=== PATIENT | male | born 1965 | race Caucasian/White ===

== ENCOUNTER 2016-10-31 13:21 | Emergency (ER) | payer MEDICAID, OTHER ==
[~2016-10-31] VITALS: Ht 167.6 cm; Wt 76.2 kg
[2016-10-31 14:20] VITALS: BP 140/75
[2016-10-31] MEDS ORDERED: K-VESCENT25 MEQ PO (14:34)
[2016-10-31] MEDS ORDERED: LISINOPRIL5 MG PO (14:34)
[2016-10-31] MEDS ORDERED: METOPROLOL25 MG PO (14:34)
[2016-10-31] MEDS ORDERED: GLUCOTROL XL10 M1 PO (14:34)
[2016-10-31] MEDS ORDERED: PANTOPRAZOLE SO40 M1 PO (14:34)
[2016-10-31] MEDS ORDERED: FENOFIBRATE MI134 MG PO (14:34)
[2016-10-31] MEDS ORDERED: LIPITOR80 MG PO (14:37)
[2016-10-31] MEDS ORDERED: HUMULIN 70 U/ML10 ML SC (14:37)
[2016-10-31] MEDS ORDERED: NORCO 325 MG-51 TAB PO (14:37)
[2016-10-31] MEDS ORDERED: FUROSEMIDE20 M1 PO (14:37)
[2016-10-31] MEDS ORDERED: ACTOPLUS MET 851 TAB PO (14:37)
--- NOTE | 2016-10-31 16:41 | NUR ---
Patient ambulated with assistance to bed 6.
--- NOTE | 2016-10-31 16:42 | NUR ---
50M BIB SELF C/O RT 5TH TOE PAIN X 1 WEEK W/ FOOT SWELLING; NECROSIS NOTED TO RT 5TH FOOT AT THIS TIME; HX: DM, HTN; PT NOTED W/ HEALING SCAR TO MEDIAL CHEST; PT HAD OPEN HEART SURGERY (CABG) AT [facility] ON SEPTEMBER 26, 2016; NO BLEEDING OR DRAINAGE NOTED TO SITE AT THIS TIME. PT NOTED W/ SMALL, DRY, HEALING OPEN WOUND TO POSTERIOR LOWER LEFT FOOT; PT STATED WOUND HAS BEEN PRESENT SINCE JANUARY 2016 FROM " WEARING SHOES THAT WERE TOO TIGHT, WHILE WORKING IN [employer]"; A&OX4, PERRL, BL LUNG SOUNDS CLEAR, RR EVEN/UNLABORED, PT DENIES N/V/D AT THIS TIME; PT RESTING IN BED W/ HOB ELEVATED AND IN LOWEST POSITION; POSITIONED FOR COMFORT; ER MD MADE AWARE OF STATUS. WILL CONTINUE TO MONITOR.
--- NOTE | 2016-10-31 17:09 | NUR ---
ER MD DR. FERNANDEZ EVALUATING PT AT BEDSIDE.
[2016-10-31] MEDS ORDERED: PIPERACILLIN/TAZOBACTAM 3.375 GM in DEXTROSE 5% 50 ML IV ONE (17:15)
[2016-10-31] MEDS ORDERED: VANCOMYCIN 1,000 MG in DEXTROSE 5% 250 ML IV ONE (17:15)
[2016-10-31] MEDS ORDERED: NACL 0.9% 1,000 ML IV ONE (17:15)
--- NOTE | 2016-10-31 17:40 | NUR ---
PATIENT TAKEN TO CT VIA WHEELCHAIR
[2016-10-31] MEDS ORDERED: PIPERACILLIN/TAZOBACTAM 3.375 GM VIAL IV ONE (17:49)
[2016-10-31] MEDS ORDERED: VANCOMYCIN 1,000 MG VIAL ONE (17:49)
--- NOTE | 2016-10-31 18:40 | NUR ---
Patient appears to be resting comfortably in bed. Respirations even and unlabored. FAMILY AT BEDSIDE. WILL CONTINUE TO MONITOR.
--- NOTE | 2016-10-31 19:25 | NUR ---
Pt report given to SHELLY HARRELL. Transfer of care at this time.
--- NOTE | 2016-10-31 19:27 | NUR ---
RECEIVED REPORT FROM SHELLY DE LEON. PT RESTING ON BED, DENIES PAIN AT THIS TIME. VSS. VANCOMYCIN ON GOING, INFUSING WELL. WILL CONTINUE TO MONITOR.
--- NOTE | 2016-10-31 20:15 | NUR ---
Patient discharged with v/s stable. Written and verbal after care instructions given and explained. Patient alert, oriented and verbalized understanding of instructions. Ambulatory with steady gait. All questions addressed prior to discharge. ID band removed. Patient advised to follow up with PMD. Rx of NORCO 5/325MG, LEVOFLOXACIN 750 MG, DOXYCYCLINE 100 MG given. Patient educated on indication of medication including possible reaction and side effects. Opportunity to ask questions provided and answered.
[2016-10-31 20:37] VITALS: BP 151/74
== END 2016-10-31 20:15 | disposition home or self-care (01) ==
LOC: MED 13:21
DX: L03.115 Cellulitis of right lower limb (principal); E11.65 Type 2 diabetes mellitus with hyperglycemia; I10 Essential (primary) hypertension; Z95.1 Presence of aortocoronary bypass graft; Z79.899 Other long term (current) drug therapy
CPT/HCPCS: 36415; 73630; 73700; 80053; 81001; 82948; 83605; 84484; 85025; 85610; 87040; 93005; 96365; 96366; 96368; 99285; J2543; J3370; J7030; J7060

== ENCOUNTER 2016-11-02 12:40 | Inpatient (IN) | payer OTHER ==
[~2016-11-02] VITALS: Ht 165.1 cm; Wt 75.9 kg
[~2016-11-02 12:40] MED LIST: ACTOPLUS MET 851 TAB PO; FENOFIBRATE MI134 MG PO; FUROSEMIDE20 M1 PO; GLUCOTROL XL10 M1 PO; HUMULIN 70 U/ML10 ML SC; K-VESCENT25 MEQ PO; LIPITOR80 MG PO; LISINOPRIL5 MG PO; METOPROLOL25 MG PO; NORCO 325 MG-51 TAB PO; PANTOPRAZOLE SO40 M1 PO
[2016-11-02 12:51] VITALS: BP 145/71
--- NOTE | 2016-11-02 12:59 | NUR ---
Patient going to XRAY via wheelchair per tech.
--- NOTE | 2016-11-02 13:02 | NUR ---
Patient back from XRAY via wheelchair per tech.
--- NOTE | 2016-11-02 13:08 | NUR ---
LAB drawing blood.
--- NOTE | 2016-11-02 13:16 | NUR ---
Pt placed in bed 7.
--- NOTE | 2016-11-02 13:21 | NUR ---
50/M sent from his doctor's office for evaluation of right foot pain and right foot wound. Pt states "I think when I was wearing my sandal it rubbed up on my foot." Pt denies any injury or trauma. Pt c/o mild pain, 5/10. There is a wound to right 5th toe with necrosis, surrounding erythema and swelling to foot and ankle, non pitting. Patient also noted with a wound to left heel that he states has been there since January 2016 but it is not red, not swollen, no drainage noted. Patient is ambulatory with steady gait. Pt is AOX4, sami speaking, VSS. Pt states he was at [facility] 09/26/16 and had stents placed.
--- NOTE | 2016-11-02 13:54 | NUR ---
Patient appears to be resting comfortably in bed. Vital Signs within normal limits. Respirations even and unlabored. Pt found lying in bed reading a book. All needs addressed.
--- NOTE | 2016-11-02 14:26 | NUR ---
Patient being evaluated by physician at bedside.
[2016-11-02] MEDS ORDERED: CLINDAMYCIN 600 MG in DEXTROSE 5% 50 ML IV ONE (14:35)
[2016-11-02] MEDS ORDERED: cefTRIAXone 1,000 MG VIAL ONE (14:39)
[2016-11-02] MEDS ORDERED: CLINDAMYCIN 600 MG/4 ML VIAL ONE ×2 (15:06→21:01)
--- NOTE | 2016-11-02 15:20 | NUR ---
Patient will be admitted to care of Dr. Betts. Admited to Med/Surg. Will go to room 106-A. Belongings list completed. Report to Gold BRAVO.
--- NOTE | 2016-11-02 15:28 | NUR ---
Pt transferred to Med/Surg 106-A via w/c accompanie by EMT Aguila. All belonging sent with patient to M/S.
[2016-11-02 15:40] VITALS: BP 128/66
--- NOTE | 2016-11-02 15:40 | NUR ---
Admitted from ER, with chief complaint of FOOT PAIN, DX CELLULITIS, BILATERAL FOOT WOUND W/ NO DRAINAGE NOTED. 50 y/o , Male, Cooperative, AOX4, ABLE TO VERBALIZE NEEDS, AMBULATORY. PT DENIES PAIN AT REST, C/O FOOT PAIN WITH MOVEMENT, ORDERS PENDING. IV ACCESS ASYMPTOMATIC PATENT AND INTACT. IV SITE SALINE LOCKED. DISCUSSED AND REVIEWED PLAN OF CARE WITH PT, PT VERBALIZES UNDERSTANDING. oriented to call light, bed, phone,television, bathroom, smoking policy, visiting hours, procedures, ID bracelet on. Belongings list checked. SAFETY MEASURES ENSURED. WILL CONTINUE TO MONITOR. Addendum: 11/02/16 at 1930 by Gold Barreto RN ADD TO ENTRY: PER PT, CORONARY BYPASS WAS DONE IN SEPTEMBER 2016, SURGICAL INCISION TO UPPER ABD, MEDIAL CHEST, AND LEFT POPLITEAL AREA. ALL SURGICAL WOUNDS DRY. WOUND EVAL ORDERED.
[2016-11-02] MEDS ORDERED: HYDROcodone/APAP 5/325 MG 1 TAB TAB PO PRN (19:05)
[2016-11-02] MEDS ORDERED: LORazepam 2 MG/ML VIAL IVP PRN (19:05)
[2016-11-02] MEDS ORDERED: LEVOFLOXACIN 500 MG/D5W PREMIX 100 ML IV SCH (19:05)
[2016-11-02] MEDS ORDERED: MORPHINE SULFATE 2 MG/ML SYR IVP PRN (19:05)
[2016-11-02] MEDS ORDERED: ACETAMINOPHEN 325 MG TAB PO PRN (19:05)
[2016-11-02] MEDS ORDERED: ONDANSETRON 4 MG/2 ML VIAL IVP PRN (19:05)
[2016-11-02] MEDS ORDERED: PNEUMOCOCCAL VACCINE 23 MCG/0.5 ML VIAL IMVAC SCH (19:10)
--- NOTE | 2016-11-02 19:30 | NUR ---
CONDITION STABLE, ENDORSED PLAN OF CARE TO SPARK PLUG TESTER RN.
--- NOTE | 2016-11-02 19:35 | NUR ---
RECEIVED REPORT FROM CYRUS BRAVO AND HEDY BRAVO. PATIENT IS ALERT, AWAKE, AND RESTING COMFORTABLY IN BED. PATIENT SPEAKS PRIMARILY COLOMBIAN, BUT IS ABLE TO UNDERSTAND AUSTRIAN. NO SIGNS OF ACUTE DISTRESS OR SHORTNESS OF BREATH NOTED. PATIENT IS DX WITH CELLULITIS ON THE RIGHT FOOT, PARTICULARLY THE PINKY TOE. THERE IS +1 PITTING EDEMA ON THE RIGHT CALF NOTED. THERE IS A #20 IN THE LEFT AC SALINE LOCKED. SITE IS DRY AND INTACT. EXPLAINED PLAN OF CARE TONIGHT TO INCLUDE SCHEDULED MEDICATIONS, VITAL SIGNS, AND MONITORING. PATIENT VERBALIZED UNDERSTANDING. PATIENT'S NEEDS MET AT THIS TIME. CALL LIGHT WITHIN REACH. WILL CONTINUE TO MONITOR PATIENT.
[2016-11-02] MEDS: NACL 0.9% 1,000 ML IV SCH (19:44)
[2016-11-02] MEDS: glipiZIDE ER 5 MG TABER PO SCH (21:00)
[2016-11-02] MEDS ORDERED: ATORVASTATIN 80 MG TAB PO SCH (21:00)
--- NOTE | 2016-11-02 21:40 | NUR ---
SPOKE TO DR. GONZALEZ, WHO IS POWERTRAIN CONTROL SYSTEMS ENGINEER FOR DR. KING, REGARDING PATIENT'S HX OF DM AND NO ORDERS FOR VTE PROPHYLAXIS. DR. GONZALEZ ASK TO ENTER ORDERS FOR SCDS FOR VTE PROPHYLAXIS AND ACHS SCHEDULE FOR HX DM. WILL FOLLOW UP WITH NEW DOCTOR'S ORDERS.
[2016-11-02] MEDS: METOPROLOL 25 MG TAB PO SCH (21:42)
[2016-11-02] MEDS: CLINDAMYCIN 600 MG in DEXTROSE 5% 50 ML IV SCH (21:43)
--- NOTE | 2016-11-02 21:46 | NUR ---
TOLERATED DUE MEDICATIONS. NO SIGNS OF SOB OR DISCOMFORT NOTED. PATIENT'S NEEDS MET AT THIS TIME. CALL LIGHT WITHIN REACH. WILL CONTINUE TO MONITOR PATIENT.
--- NOTE | 2016-11-02 21:50 | NUR ---
UNABLE TO ADMINISTER SCHEDULED 2100 GLUCOTROL XL 10MG PO AND LIPITOR 80MG PO RELATED TO MEDICATION NOT AVAILABLE IN THE FACILITY PER MIRELLA VACA RN. CHARGE NURSE ROME RN IS AWARE.
[2016-11-02] MEDS: INSULIN NPH HUM/REG INSULIN HM 100 UNIT/ML 10 ML VIAL SQ SCH (22:04)
--- NOTE | 2016-11-02 22:40 | NUR ---
PATIENT RESTING COMFORTABLY IN BED. NO SIGNS OF SOB OR DISTRESS NOTED. CALL LIGHT WITHIN REACH. CONTINUE TO MONITOR PATIENT.
--- NOTE | 2016-11-02 23:52 | NUR ---
PATIENT RESTING COMFORTABLY IN BED. VITAL SIGNS ARE WNL. NO REPORTS OF PAIN OR DISCOMFORT AT THIS TIME. PATIENT'S NEEDS MET AT THIS TIME. CALL LIGHT WITHIN REACH. WILL CONTINUE TO MONITOR PATIENT.
[2016-11-03] VITALS: BP 119/60
[2016-11-03] MEDS ORDERED: INSULIN LISPRO SLIDING SCALE 100 UNITS/ML VIAL SUBQ PRN (00:55)
--- NOTE | 2016-11-03 01:50 | NUR ---
PATIENT RESTING COMFORTABLY IN BED. BREATHING IS EVEN AND UNLABORED. CALL LIGHT WITHIN REACH. WILL CONTINUE TO MONITOR.
--- NOTE | 2016-11-03 04:05 | NUR ---
ROUNDED ON PATIENT. PATIENT RESTING QUIETLY IN BED. NO SIGNS OF DISTRESS NOTED. CALL LIGHT WITHIN REACH. WILL CONTINUE TO MONITOR PATIENT.
[2016-11-03] MEDS ORDERED: CLINDAMYCIN 600 MG/4 ML VIAL ONE (04:22)
[2016-11-03] MEDS: CLINDAMYCIN 600 MG in DEXTROSE 5% 50 ML IV SCH (04:29)
--- NOTE | 2016-11-03 05:55 | NUR ---
DR. ALMEIDA AND RESIDENT AT PATIENT'S BEDSIDE TO DISCUSS DEBRIDEMENT PROCEDURE OF RIGHT PINKY TOE. PATIENT VERBALIZED UNDERSTANDING. CONSENT FORM SIGNED.
--- NOTE | 2016-11-03 07:19 | NUR ---
PATIENT RESTING COMFORTABLY IN BED WITH NO SIGNS OF DISTRESS NOTED. ALL PATIENT'S NEEDS ATTENDED TO DURING SHIFT. ENDORSED CONTINUITY OF CARE TO RAMONA BRAVO AND CYRUS BRAVO.
[2016-11-03] MEDS ORDERED: BLOOD GLUCOSE MONITORING 1 DEV DEV FS SCH (07:30)
--- NOTE | 2016-11-03 07:30 | NUR ---
RECEIVED REPORT FROM NIGHT NURSE. PT AOX4, RESTING IN BED, ABLE TO VERBALIZE NEEDS. PT DENIES PAIN, CP OR SOB. NO S/S OF ACUTE DISTRESS. EDEMA TO RIGHT FOOT NOTED. DRESSING TO RIGHT FOOT. LEFT HEEL WOUND, LEFT POPLITEAL WOUND, CHEST AND ABD SCARS NOTED. IV SITE ASYMPTOMATIC, PATENT AND INTACT. IVF INFUSING WELL DISCUSSED AND REVIEWED PLAN OF CARE WITH PT. PT VERBALIZES UNDERSTANDING. ASSISTED PT TO EAT. PT EATING INDEPENDENTLY. SAFETY MEASURES ENSURED. CALL LIGHT WITHIN REACH. WILL CONTINUE TO MONITOR.
[2016-11-03 08:00] VITALS: BP 136/76
--- NOTE | 2016-11-03 08:12 | NUR ---
PATIENT HAS BEEN SCREENED AND CATEGORIZED HIGH NUTRITION RISK. PATIENT WILL BE SEEN WITHIN 1-2 DAYS OF ADMISSION. 11/03/16-11/04/[address]
[2016-11-03] MEDS: NACL 0.9% 1,000 ML IV SCH (08:21)
[2016-11-03] MEDS ORDERED: FUROSEMIDE 20 MG TAB PO SCH (09:00)
[2016-11-03] MEDS ORDERED: LISINOPRIL 5 MG TAB PO SCH (09:00)
[2016-11-03] MEDS ORDERED: LEVAQUIN500 M1 PO (09:06)
[2016-11-03] MEDS ORDERED: CLEOCIN HCL300 MG PO (09:06)
[2016-11-03] MEDS: METOPROLOL 25 MG TAB PO SCH (09:11)
[2016-11-03] MEDS: glipiZIDE ER 5 MG TABER PO SCH (09:12)
[2016-11-03] MEDS: INSULIN NPH HUM/REG INSULIN HM 100 UNIT/ML 10 ML VIAL SQ SCH (09:28)
--- NOTE | 2016-11-03 09:33 | NUR ---
MEDICATIONS ADMINISTERED WITH EDUCATION. PT VERBALIZES UNDERSTANDING. PT TOLERATED MEDS WELL. CONDITION STABLE. SAFETY MEASURES ENSURED. WILL CONTINUE TO MONITOR.
--- NOTE | 2016-11-03 09:50 | NUR ---
DR. HURST'S RESIDENT CALLED. NO PLANS OF TX FOR THIS PT. PT WILL NEED TO F/U WITH PCP AND GET A REFERRAL TO A VASCULAR SURGEON PER DR KING. WILL START THE DC PROCESS.
--- NOTE | 2016-11-03 11:12 | NUR ---
CM NOTE [facility] ([phone]), WILL SET UP OUTPATIENT VASCULAR APPOINTMENT ONCE ORDER HAS BEEN RECEIVED.
--- NOTE | 2016-11-03 11:45 | NUR ---
PT GIVEN DISCHARGE INFORMATION. ANSWERED ALL QUESTIONS. PT VERBALIZED UNDERSTANDING. PT SIGNED ALL NECESSARY PAPERWORK. REMOVED PT'S IV, CANNULA INTACT. NO BLEEDING NOTED. REMOVED ID BAND. TOOK PICTURES OF WOUND X 3. PT WILL GET DRESSED AND GATHER HIS STUFF. ADMINISTERED HIS PNEUMONIA VACCINE. PT TOLERATED WELL. WILL LET ME KNOW WHEN HE IS READY SO THAT WE CAN BRING A WHEELCHAIR TO PUSH HIM OUT.
--- NOTE | 2016-11-03 11:55 | NUR ---
PT WHEELED OUT ACCOMPANIED BY POT RELINER AND FRIEND. PT HAS ALL HIS PERSONAL BELONGINGS. PT IS IN STABLE CONDITION.
--- NOTE | 2016-11-03 14:01 | NUR ---
CM NOTE INITIAL REVIEW FAXED TO [facility] (FAX# [phone]) AND [facility] (FAX# [phone], ATTN: JEAN CARLOS #[phone])
--- NOTE | 2016-11-04 09:00 | NUR ---
WOUND CARE NOTES: UNABLE TO SEE PATIENT, PATIENT GOT D/C 11/03/16
== END 2016-11-03 11:55 | disposition home or self-care (01) | DRG 380 ==
LOC: MED 12:40 → MTU 15:20
PROVIDERS: ADMIT Hospitalist; ATTEND Hospitalist
DX: E11.621 Type 2 diabetes mellitus with foot ulcer (principal); L97.519 Non-pressure chronic ulcer of other part of right foot with unspecified severity; E11.52 Type 2 diabetes mellitus with diabetic peripheral angiopathy with gangrene; E11.40 Type 2 diabetes mellitus with diabetic neuropathy, unspecified; L03.116 Cellulitis of left lower limb; I25.10 Atherosclerotic heart disease of native coronary artery without angina pectoris; I10 Essential (primary) hypertension; I15.2 Hypertension secondary to endocrine disorders; E78.5 Hyperlipidemia, unspecified; K21.9 Gastro-esophageal reflux disease without esophagitis; Z95.1 Presence of aortocoronary bypass graft

== ENCOUNTER 2016-11-29 14:54 | Inpatient (IN) | payer OTHER ==
[~2016-11-29] VITALS: Ht 165.1 cm; Wt 73.9 kg
[~2016-11-29 14:54] MED LIST changes: +ACET-2869 PO; -ACTOPLUS MET 851 TAB PO; +CLIN300C2 PO; +FENO134C2 PO; -FENOFIBRATE MI134 MG PO; +FURO20TA8 PO; -FUROSEMIDE20 M1 PO; +GLIP10TE PO; -GLUCOTROL XL10 M1 PO; -HUMULIN 70 U/ML10 ML SC; +INSU10SU2 SC; -K-VESCENT25 MEQ PO; +LEVO500T22 PO; +LIP80 PO; -LIPITOR80 MG PO; +LISI-424 PO; -LISINOPRIL5 MG PO; +METF1TAB PO; +METO25TA3 PO; -METOPROLOL25 MG PO; -NORCO 325 MG-51 TAB PO; +PANT40VI PO; -PANTOPRAZOLE SO40 M1 PO; +POTA25TE38 PO
[2016-11-29 15:22] VITALS: BP 151/77
--- NOTE | 2016-11-29 17:37 | NUR ---
PATIENT AMBULATED TO BED 6 AT THIS TIME.
--- NOTE | 2016-11-29 17:40 | NUR ---
PT REFERRED TO ER FROM MACHINE SHOP INSPECTOR FOR ADMISSION TO HOSPITAL FOR GANGRENOUS RIGHT 5TH TOE NOT RESPONDING TO WOUND CARE, PICC LINE INSERTION AND IV ABX. HX DM, TRIPLE BYPASS 09/30 AT [facility].DENIES N/V/D; SKIN IS PINK/WARM/DRY; AAOX4 WITH EVEN AND STEADY GAIT; LUNGS CLEAR BL; HR EVEN AND REGULAR; PT DENIES ANY FEVER, CP, SOB, OR COUGH AT THIS TIME; PATIENT STATES PAIN OF 9/10 AT THIS TIME;PATIENT POSITIONED FOR COMFORT; HOB ELEVATED; BEDRAILS UP X2; BED DOWN. ER MD MADE AWARE OF PT STATUS.
[2016-11-29] MEDS ORDERED: NACL 0.9% 500 ML IV SCH (17:44)
[2016-11-29] MEDS ORDERED: VANCOMYCIN 1,000 MG in DEXTROSE 5% 250 ML IV ONE (17:45)
[2016-11-29] MEDS ORDERED: cefTRIAXone 1,000 MG in DEXT 5% MINI-BAG PLUS 50 ML IV ONE (17:45)
[2016-11-29] MEDS ORDERED: cefTRIAXone 1,000 MG VIAL ONE (18:45)
[2016-11-29 18:50] LABS: BASOPHILS % (AUTO) 0.2 % (0.0-2.0); EOSINOPHILS # (AUTO) 0.3 K/uL (0-0.4); EOSINOPHILS % (AUTO) 2.5 % (0.0-4.0); HEMATOCRIT 32.7 % (36-52); LYMPHOCYTES # (AUTO) 1.4 K/uL (2.0-11.5); LYMPHOCYTES % (AUTO) 13.6 % (20.5-51.1); MEAN CORPUSCULAR HEMOGLOBIN 29 pg (27-31); MEAN CORPUSCULAR HGB CONC 34 g/dL (33-37); MEAN CORPUSCULAR VOLUME 85 fL (80-94); MONOCYTES # (AUTO) 0.7 K/uL (0.8-1.0); MONOCYTES % (AUTO) 6.9 % (1.7-9.3); NEUTROPHILS % (AUTO) 76.8 % (42.2-75.2); PLATELET COUNT (AUTO) 254 K/uL (140-450); RED BLOOD CELL COUNT(AUTO) 3.87 MIL/uL (4.20-6.10); RED CELL DISTRIBUTION WIDTH 13.9 % (11.6-13.7); WHITE BLOOD COUNT (AUTO) 10.4 K/uL (4.8-10.8)
[2016-11-29 19:14] LABS: LACTIC ACID 0.7 mmol/L (0.4-2.0)
[2016-11-29 19:19] LABS: ANION GAP 12.6 (8-16); CALCIUM 8.4 mg/dL (8.5-10.1); CARBON DIOXIDE 25.8 mmol/L (21-32); CREATININE 1.1 mg/dL (0.6-1.3); POTASSIUM 4.4 mmol/L (3.5-5.1)
[2016-11-29 19:21] LABS: PARTIAL THROMBOPLASTIN TIME 25.3 secs (22-35.6); PROTHROMBIN TIME 9.6 secs (10.8-13.4)
[2016-11-29 19:23] LABS: ALBUMIN 2.8 g/dL (3.4-5.0); TOTAL BILIRUBIN 0.2 mg/dL (0.0-1.0); TOTAL PROTEIN, SERUM 7.1 g/dL (6.4-8.2)
--- NOTE | 2016-11-29 19:39 | NUR ---
Pt report given to SHELLY QUIROGA. Transfer of care at this time.
[2016-11-29] MEDS ORDERED: HYDROcodone/APAP 5/325 MG 1 TAB TAB PO PRN (20:05)
[2016-11-29] MEDS ORDERED: MORPHINE SULFATE 2 MG/ML SYR IVP PRN (20:05)
[2016-11-29] MEDS ORDERED: ACETAMINOPHEN 325 MG TAB PO PRN (20:05)
[2016-11-29] MEDS ORDERED: ONDANSETRON 4 MG/2 ML VIAL IVP PRN (20:05)
[2016-11-29] MEDS ORDERED: DEXTROSE 50% 50 ML SYR IVP PRN (20:05)
[2016-11-29] MEDS ORDERED: LORazepam 2 MG/ML VIAL IVP PRN (20:05)
[2016-11-29 20:16] LABS: APPEARANCE,URINE CLEAR (CLEAR); BILIRUBIN,URINE NEGATIVE (NEGATIVE); BLOOD, URINE 1+ (NEGATIVE); COLOR,URINE YELLOW (YELLOW); LEUKOCYTE ESTERASE ,URINE NEGATIVE (NEGATIVE); NITRITE, URINE NEGATIVE (NEGATIVE); PH,URINE 5.5 (5.0-9.0); PROTEIN,URINE 3+ (NEGATIVE); UGLUCOSE 3+ (NEGATIVE); UROBILINOGEN,URINE 0.2 EU/dL (0.2 - 1)
--- NOTE | 2016-11-29 20:35 | NUR ---
Patient will be admitted to care of DR GONZALEZ. Admited to MS 105B. Will go to room 105B. Belongings list completed. Report to DAYNA BRAVO .
[2016-11-29 20:37] LABS: BACTERIA,URINE FEW /HPF (None Seen); SQUAMOUS EPITHELIAL CELL,UR 0-3 /LPF (0-3 (FEW)); WBC,URINE 0-3 /HPF (0-5)
--- NOTE | 2016-11-29 21:00 | NUR ---
PATIENT ADMITTED TO THE UNIT FROM ED VIA WHEELCHAIR, PATIENT IS ABLE TO AMBULATE TO BED WITH MINIMAL ASSISTANCE. PT IS AAOX4, ON ROOM AIR, NO SOB OR SIGN OF DISTRESS. IV TO RIGHT AC PATENT AND INTACT. NOTED TO RIGHT 5TH TOE, WOULD WITH BLACK WOUND BED, PATIENT STATES MINIMAL PAIN. NOTED MIDLINE CHEST SCAR S/P CABG SURGERY 09/2016. VITAL SIGNS STABLE, ORIENTED PATIENT TO ROOM AND CALL LIGHT, SAFETY MEASURES CHECKED, DISCUSSED PLAN OF CARE WITH PATIENT, PT VERBALIZED UNDERSTANDING, CALL LIGHT WITHIN REACH. WILL CONTINUE TO MONITOR.
[2016-11-29] MEDS ORDERED: VANCOMYCIN 1,000 MG VIAL ONE (21:02)
[2016-11-29] MEDS: NACL 0.9% 1,000 ML IV SCH (21:17)
[2016-11-29] MEDS: BLOOD GLUCOSE MONITORING 1 DEV DEV FS SCH (21:19)
[2016-11-29] MEDS: INSULIN LISPRO SLIDING SCALE 100 UNITS/ML VIAL SUBQ PRN (21:26)
[2016-11-29] MEDS ORDERED: PIPERACILLIN/TAZOBACTAM 3.375 GM VIAL IV ONE (21:32)
[2016-11-29] MEDS: PIPERACILLIN/TAZOBACTAM 3.375 GM in DEXTROSE 5% 50 ML IV SCH (22:52)
--- NOTE | 2016-11-29 23:00 | NUR ---
PATIENT RESTING IN BED, NO SOB OR SIGN OF DISTRESS, CALL LIGHT WITHIN REACH. WILL CONTINUE TO MONITOR.
[2016-11-30] VITALS: BP 134/57
--- NOTE | 2016-11-30 00:30 | NUR ---
VITAL SIGNS STABLE, NO SOB OR SIGN OF DISTRESS, CALL LIGHT WITHIN REACH WILL CONTINUE TO MONITOR.
--- NOTE | 2016-11-30 02:30 | NUR ---
PATIENT SLEEPING, NO SOB OR SIGN OF DISTRESS AT THIS TIME, CALL LIGHT WITHIN REACH, WILL CONTINUE TO MONITOR.
[2016-11-30 02:46] LABS: CREATINE KINASE MB 0.9 ng/mL (0-3.6)
--- NOTE | 2016-11-30 04:30 | NUR ---
PATIENT RESTING IN BED, NO SOB OR SIGN OF DISTRESS AT THIS TIME, CALL LIGHT WITHIN REACH. WILL CONTINUE TO MONITOR.
[2016-11-30] MEDS ORDERED: PIPERACILLIN/TAZOBACTAM 3.375 GM VIAL IV ONE (04:37)
[2016-11-30] MEDS: PIPERACILLIN/TAZOBACTAM 3.375 GM in DEXTROSE 5% 50 ML IV SCH (04:40)
[2016-11-30] MEDS: NACL 0.9% 1,000 ML IV SCH ×2 (06:05→16:01)
[2016-11-30 06:24] LABS: BASOPHILS # (AUTO) 0.1 K/uL (0.00-0.22); BASOPHILS % (AUTO) 1.2 % (0.0-2.0); EOSINOPHILS # (AUTO) 0.2 K/uL (0-0.4); EOSINOPHILS % (AUTO) 2.3 % (0.0-4.0); HEMATOCRIT 29.9 % (36-52); LYMPHOCYTES # (AUTO) 1.6 K/uL (2.0-11.5); LYMPHOCYTES % (AUTO) 18.2 % (20.5-51.1); MEAN CORPUSCULAR HEMOGLOBIN 28 pg (27-31); MEAN CORPUSCULAR HGB CONC 34 g/dL (33-37); MEAN CORPUSCULAR VOLUME 84 fL (80-94); MONOCYTES # (AUTO) 0.7 K/uL (0.8-1.0); MONOCYTES % (AUTO) 8.3 % (1.7-9.3); NEUTROPHILS # (AUTO) 6.2 K/uL (1.8-7.7); PLATELET COUNT (AUTO) 233 K/uL (140-450); RED BLOOD CELL COUNT(AUTO) 3.55 MIL/uL (4.20-6.10); RED CELL DISTRIBUTION WIDTH 14.1 % (11.6-13.7); WHITE BLOOD COUNT (AUTO) 8.8 K/uL (4.8-10.8)
[2016-11-30] MEDS: BLOOD GLUCOSE MONITORING 1 DEV DEV FS SCH ×4 (06:38→20:47)
[2016-11-30 06:43] LABS: ALBUMIN 2.3 g/dL (3.4-5.0); ANION GAP 11.4 (8-16); CARBON DIOXIDE 25.7 mmol/L (21-32); MAGNESIUM 1.9 mg/dL (1.8-2.4); POTASSIUM 4.1 mmol/L (3.5-5.1); TOTAL BILIRUBIN 0.2 mg/dL (0.0-1.0); TOTAL PROTEIN, SERUM 6.2 g/dL (6.4-8.2)
[2016-11-30] MEDS: INSULIN LISPRO SLIDING SCALE 100 UNITS/ML VIAL SUBQ PRN ×3 (06:44→20:46)
--- NOTE | 2016-11-30 07:34 | NUR ---
RECEIVED REPORT FROM NIGHT RN. PT RESTING IN BED. AAOX4. NO S/S OF ACUTE DISTRESS. WOUND TO RIGHT 5TH TOE AND LEFT HEEL NOTED. PT DENIES PAIN. IV SITE PATENT AND INTACT. CALL LIGHT WITHIN REACH. SAFETY MEASURES ENSURED. WILL CONTINUE TO MONITOR.
--- NOTE | 2016-11-30 07:34 | NUR ---
ENDORSED PATIENT TO DAY RN AT BEDSIDE, PATIENT IN STABLE CONDITION
--- NOTE | 2016-11-30 08:30 | NUR ---
PATIENT HAS BEEN SCREENED AND CATEGORIZED HIGH NUTRITION RISK. PATIENT WILL BE SEEN WITHIN 1-2 DAYS OF ADMISSION. 11/30/16-12/01/[address]
--- NOTE | 2016-11-30 08:35 | NUR ---
WOUND CARE EVALUATION NOTES: REASON FOR EVALUATION: RIGHT 5TH TOE GANGRENE COMPLETE SKIN ASSESSMENT DONE ON THIS 50 Y/O MALE PATIENT FROM HOME TO [facility], WITH INITIAL DIAGNOSIS OF RIGHT 5TH TOE GANGRENE. PAST MEDICAL HISTORY INCLUDE DIABETES, CABG 09/30 AND HYPERTENSION. ALL ABOVE INFORMATION WAS OBTAINED FROM THE ADMISSION H&P. LABS ARE WBC 8.8, H/H 10.0/29.9, GLUCOSE 200, ALBUMIN 2.3, PT/INR 9.6/1.0 AND PTT 25.3. CURRENT MEDS INCLUDE ENOXAPARIN, ZOSYN, INSULIN, MORPHINE, ATIVAN AND NORCO. PATIENT IS AWAKE, ALERT AND ORIENTED TO PERSON, PLACE, DATE AND TIME. SKIN WARM TO TOUCH WNL, TOENAILS ARE SLIGHTLY THICKENED, NO EDEMA, WITH HAIR GROWTH AND +2 BILATERAL PEDAL PULSES. SURGICAL SCARRING NOTED ON THE THE STERNUM, PER PATIENT HE HAD CABG DONE ON 09/26/16 AT [facility]. URINE AND BOWEL CONTINENT, ABLE TO AMBULATE TO THE RESTROOM CLAIMED. ABLE TO TURN SELF WITHOUT ASSISTANCE. INITIAL PLAN OF CARE AND PRESSURE PREVENTIVE MEASURES DISCUSSED, ABLE TO VERBALIZE UNDERSTANDING. INTEGUMENTARY: RIGHT 5TH TOE - GANGRENE LEFT PLANTAR HEEL - DFU RECOMMENDATIONS: -PAINT RIGHT 5TH TOE AND LEFT PLANTAR HEEL WITH BETADINE BIDWC AND LEAVE OPEN TO AIR -TURN AND REPOSITION PATIENT Q2H -ASSESS AND MONITOR SKIN CONDITION DURING POSITION CHANGE, PLEASE PAY PARTICULAR ATTENTION TO SACRALCOCCYX, ELBOWS AND HEELS -OFFLOAD BILATERAL HEELS BY PLACING PILLOWS UNDER CALVES AT ALL TIMES, UNLESS OTHERWISE CONTRAINDICATED -PODIATRY CONSULT IF OK WITH PMD -KEEP SKIN CLEAN AND DRY AT ALL TIMES. RECOMMENDATIONS DISCUSSED WITH PRIMARY RN. WILL FOLLOW UP PATIENT Q7 DAYS AND PRN. PLEASE CONTACT [facility] FOR ANY CONCERNS, QUESTIONS AND CHANGES IN SKIN CONDITION.
[2016-11-30] MEDS: ENOXAPARIN 40 MG/0.4 ML SYR SUBQ SCH (08:53)
[2016-11-30 09:29] VITALS: BP 122/74
--- NOTE | 2016-11-30 10:34 | NUR ---
FAXED INITIAL REVIEW TO [facility] [phone] PHONE SAUNDRA [phone]
--- NOTE | 2016-11-30 10:49 | NUR ---
PICTURE TAKEN OF LEFT FOOT WOUND.
--- NOTE | 2016-11-30 10:57 | NUR ---
11/30/16 RD INITIAL ASSESSMENT COMPLETED PLEASE REFER TO NUTRITION ASSESSMENT UNDER CARE ACTIVITY FOR ESTIMATED NUTRITIONAL NEEDS. 1. CHANGE DIET TO 75 GM CONSISTENT CARBOHYDRATE DIET 2. RECOMMEND VITAMIN C SUPPLEMENT [id number] MG/DAILY 3. RD TO FOLLOW-UP 2-3 DAYS; HIGH RISK MITZY LIM, FLEX
--- NOTE | 2016-11-30 11:00 | NUR ---
DR. GONZALEZ MADE AWARE OF RECOMMENDATION FOR PEDIATRY CONSULT AND ARTERIA AND VENOUS ULTRASOUND OF BLE.
[2016-11-30 11:04] LABS: CREATINE KINASE MB 1.2 ng/mL (0-3.6)
[2016-11-30] MEDS: PIPER/TAZO 3.375GM/D5W PREMIX 50 ML IV SCH ×2 (12:24→20:56)
[2016-11-30] MEDS: GAUZE TP SCH (12:24)
--- NOTE | 2016-11-30 12:49 | NUR ---
PT RESTING IN BED. NO S/S OF ACUTE DISTRESS. PT DENIES PAIN. CALL LIGHT WITHIN REACH. SAFETY MEASURES ENSURED. WILL CONTINUE TO MONITOR.
[2016-11-30 16:00] VITALS: BP 138/68
--- NOTE | 2016-11-30 16:11 | NUR ---
PT RESTING IN BED. NO S/S OF ACUTE DISTRESS. PT DENIES PAIN. FAMILY AT BEDSIDE. WILL CONTINUE TO MONITOR.
--- NOTE | 2016-11-30 19:33 | NUR ---
ENDORSED PLAN OF CARE TO NIGHT RN. PT REMAINS IN STABLE CONDITION.
--- NOTE | 2016-11-30 19:34 | NUR ---
RECEIVED PT FROM YENNY BRAVO PT IS AAOX4 ALBANIAN SPEAKER AMBULATORY ILV ON RT AC INFUSING WELL NOT DISTRESS NOTED AT THIS TIME INITIAL ASSESSMENT DONE
[2016-11-30 20:00] VITALS: BP 142/74
[2016-11-30] MEDS: INSULIN NPH HUM/REG INSULIN HM 100 UNIT/ML 10 ML VIAL SQ SCH (20:48)
[2016-11-30] MEDS ORDERED: METOPROLOL 25 MG TAB PO SCH (21:00)
[2016-11-30] MEDS ORDERED: INSULIN NPH HUM/REG INSULIN HM 100 UNIT/ML 10 ML VIAL SQ SCH (21:00)
[2016-11-30] MEDS ORDERED: ATORVASTATIN 80 MG TAB PO SCH (21:00)
--- NOTE | 2016-11-30 21:30 | NUR ---
BLOOD SUGAR TEST 241 COVERAGE WITH4 UNITS SUBQ HUMALOG RT ARM
[2016-12-01] VITALS: BP 152/77
--- NOTE | 2016-12-01 | NUR ---
IV ON RT AC IS OUT AND A NEW IV IS INSERTED ON LEFT HAND GAUGE # 22, REMAIN STABLE DENIES ANY PAIN OR DISCOMFORT
[2016-12-01] MEDS: GAUZE TP SCH ×2 (01:00→12:49)
--- NOTE | 2016-12-01 04:00 | NUR ---
SPONGE BATH GIVEN , LINEN CHANGED IV ON LEFT HAND INFUSING WELL DENIES ANY PAIN
[2016-12-01] MEDS: NACL 0.9% 1,000 ML IV SCH ×2 (04:37→12:01)
[2016-12-01] MEDS: PIPER/TAZO 3.375GM/D5W PREMIX 50 ML IV SCH ×2 (04:38→12:26)
[2016-12-01] MEDS: BLOOD GLUCOSE MONITORING 1 DEV DEV FS SCH ×2 (07:03→11:52)
--- NOTE | 2016-12-01 07:03 | NUR ---
BLOOD SUGAR TEST 89 PT RESTING NOT DISTRESS NOTED IV ON LEFT HAND INFUSING WELL
--- NOTE | 2016-12-01 07:05 | NUR ---
RECEIVED REPORT FROM NIGHT RN. PT RESTING IN BED, AAOX4, IV INTACT AND PATENT, PATIENT DENIES PAIN, NO S/S OF DISTRESS NOTE, WOUND NOTED TO RT 5TH TOE, AND LT HEEL. CALL LIGHT WITHIN REACH, SAFETY MEASURE ENSURED, WILL CONTINUE TO MONITOR.
[2016-12-01 07:10] LABS: BASOPHILS # (AUTO) 0.1 K/uL (0.00-0.22); BASOPHILS % (AUTO) 1.4 % (0.0-2.0); EOSINOPHILS # (AUTO) 0.2 K/uL (0-0.4); EOSINOPHILS % (AUTO) 2.4 % (0.0-4.0); HEMOGLOBIN 10.1 g/dL (12.0-18.0); LYMPHOCYTES # (AUTO) 1.7 K/uL (2.0-11.5); LYMPHOCYTES % (AUTO) 18.2 % (20.5-51.1); MEAN CORPUSCULAR HEMOGLOBIN 28 pg (27-31); MEAN CORPUSCULAR HGB CONC 33 g/dL (33-37); MEAN CORPUSCULAR VOLUME 85 fL (80-94); MONOCYTES # (AUTO) 0.7 K/uL (0.8-1.0); MONOCYTES % (AUTO) 7.6 % (1.7-9.3); NEUTROPHILS # (AUTO) 6.7 K/uL (1.8-7.7); NEUTROPHILS % (AUTO) 70.4 % (42.2-75.2); PLATELET COUNT (AUTO) 241 K/uL (140-450); RED BLOOD CELL COUNT(AUTO) 3.67 MIL/uL (4.20-6.10); RED CELL DISTRIBUTION WIDTH 14.1 % (11.6-13.7); WHITE BLOOD COUNT (AUTO) 9.4 K/uL (4.8-10.8)
[2016-12-01 08:00] VITALS: BP 137/75
[2016-12-01 08:54] LABS: ALBUMIN 2.2 g/dL (3.4-5.0); ANION GAP 12.6 (8-16); CALCIUM 8.4 mg/dL (8.5-10.1); CARBON DIOXIDE 25.9 mmol/L (21-32); CREATININE 1.1 mg/dL (0.6-1.3); POTASSIUM 3.5 mmol/L (3.5-5.1); TOTAL BILIRUBIN 0.2 mg/dL (0.0-1.0); TOTAL PROTEIN, SERUM 6.3 g/dL (6.4-8.2)
[2016-12-01] MEDS ORDERED: CIT AC PO SCH (09:00)
[2016-12-01] MEDS ORDERED: FUROSEMIDE 20 MG TAB PO SCH (09:00)
[2016-12-01] MEDS ORDERED: POTASSIUM BICARBONATE PO SCH (09:00)
[2016-12-01] MEDS ORDERED: LISINOPRIL 5 MG TAB PO SCH (09:00)
--- NOTE | 2016-12-01 09:50 | NUR ---
PATIENT RESTING AND WATCHING TV IN BED, NO S/S OF ACUTE DISTRESS NOTED, DENIES PAIN AT THIS TIME, IV INTACT AND PATENT, CALL LIGHT WITHIN REACH, SAFETY MEASURE ENSURED, WILL CONTINUE TO MONITOR.
[2016-12-01] MEDS: ENOXAPARIN 40 MG/0.4 ML SYR SUBQ SCH (09:56)
[2016-12-01] MEDS: INSULIN NPH HUM/REG INSULIN HM 100 UNIT/ML 10 ML VIAL SQ SCH (10:00)
--- NOTE | 2016-12-01 11:58 | NUR ---
PATIENT RESTING IN BED, BLOOD SUGAR 87, GIVEN APPLE JUICE. NO S/S OF ACUTE DISTRESS NOTED, PT DENIES PAIN. PT IS AWAITING LUNCH, CALL LIGHT WITHIN REACH, SAFETY MEASURE ENSURED, AND WILL CONTINUE TO MONITOR.
--- NOTE | 2016-12-01 13:16 | NUR ---
P.T. NOTES P.T. EVAL DONE; NURSING TO AMBULATE PATIENT W/ CRUTCHES, (L)LE TTWB AD ROSALBA.
--- NOTE | 2016-12-01 14:37 | NUR ---
SS NOTE: SENT PT INFORMATION AND MD ORDER TO [facility] (F: [phone]), RECEIVED FAX CONFIRMATION PER RAJESH FROM [address] ([phone]), THEY ARE ABLE TO ACCEPT PT AND WILL SCHEDULE AN APPT WITH PT ONCE THEY RECEIVE AUTH FROM [facility]. I SPOKE WITH NARCISA FROM [facility] ([phone]) AND SHE CONFIRMED THAT THEY RECEIVED PT'S INFORMATION. SHE STATED THAT THE ORDER HAS NOT BEEN PROCESSED YET AND A CM WILL CALL ME BACK ONCE [facility] BEEN APPROVED. SHE WAS MADE AWARE THAT THERE IS A DISCHARGE ORDER.
--- NOTE | 2016-12-01 16:10 | NUR ---
SS NOTE: CHI MENA FROM [facility] ([phone]), THEY RECEIVED AUTH FROM PT'S INSURANCE AND HAVE ALREADY CONTACTED PT TO MAKE AN APPT TO VISIT PT AT HOME.
--- NOTE | 2016-12-01 17:17 | NUR ---
PATIENT CLEAR FOR DISCHARGE, DISCHARGE INSTRUCTION PROVIDED, PATIENT VERBALIZED UNDERSTANDING, IV TAKEN OUT, TIP INTACT, PATIENT TAKEN OUT
== END 2016-12-01 17:17 | disposition home health service (06) | DRG 197 ==
LOC: MED 14:54 → MTU 20:05
PROVIDERS: ADMIT Hospitalist; ATTEND Hospitalist
DX: E11.52 Type 2 diabetes mellitus with diabetic peripheral angiopathy with gangrene (principal); E11.40 Type 2 diabetes mellitus with diabetic neuropathy, unspecified; E11.621 Type 2 diabetes mellitus with foot ulcer; L97.519 Non-pressure chronic ulcer of other part of right foot with unspecified severity; I10 Essential (primary) hypertension; I25.10 Atherosclerotic heart disease of native coronary artery without angina pectoris; L03.031 Cellulitis of right toe; Z95.1 Presence of aortocoronary bypass graft
CPT/HCPCS: 36415; 71010; 73630; 80053; 81001; 82550; 82553; 82948; 83605; 83735; 83874; 83880; 84484; 85025; 85610; 85651; 85730; 86140; 87040; 87081; 87086; 93005; 93971; 96365; 97116; 99285; J0696; J1650; J1815; J2543; J3370; J7030; J7060; Q0092

== ENCOUNTER 2017-04-07 11:54 | Inpatient (IN) | payer OTHER ==
[~2017-04-07] VITALS: Ht 167.6 cm; Wt 70.8 kg
[~2017-04-07 11:54] MED LIST changes: -ACET-2869 PO; +ACTOPLUS MET 851 TAB PO; +CLEOCIN HCL300 MG PO; -CLIN300C2 PO; -FENO134C2 PO; +FENOFIBRATE MI134 MG PO; -FURO20TA8 PO; +FUROSEMIDE20 M1 PO; -GLIP10TE PO; +GLUCOTROL XL10 M1 PO; +HUMULIN 70 U/ML10 ML SC; -INSU10SU2 SC; +K-VESCENT25 MEQ PO; +LEVAQUIN500 M1 PO; -LEVO500T22 PO; -LIP80 PO; +LIPITOR80 MG PO; -LISI-424 PO; +LISINOPRIL5 MG PO; -METF1TAB PO; -METO25TA3 PO; +METOPROLOL25 MG PO; +NORCO 325 MG-51 TAB PO; -PANT40VI PO; +PANTOPRAZOLE SO40 M1 PO; -POTA25TE38 PO
[2017-04-07 12:02] VITALS: BP 156/80
--- NOTE | 2017-04-07 14:27 | NUR ---
PATIENT TO BED#6
--- NOTE | 2017-04-07 14:32 | NUR ---
PATIENT PRESENTS TO ED WITH c/o right foot pain, discoloration to right 5th toe---swelling tender to lateral aspect of right foot x 3 days---denies injury to foot--+2 pedal pulse pt states he had an appt for amputation of 5th toe but he skipped it and began to cure foot on his own hx---dm, triple bypass 09/2016 in [facility], rx----?? DENIES N/V/D; SKIN IS PINK/WARM/DRY; AAOX4 WITH EVEN AND STEADY GAIT; LUNGS CLEAR BL; HR EVEN AND REGULAR; PT DENIES ANY FEVER, CP, SOB, OR COUGH AT THIS TIME; PATIENT STATES PAIN OF 7/10 AT THIS TIME; VSS; PATIENT POSITIONED FOR COMFORT; HOB ELEVATED; BEDRAILS UP X2; BED DOWN. ER MD MADE AWARE OF PT STATUS.
[2017-04-07] MEDS ORDERED: VANCOMYCIN 1,000 MG in DEXTROSE 5% 250 ML IV ONE (15:00)
[2017-04-07] MEDS ORDERED: PIPERACILLIN/TAZOBACTAM 3.375 GM in DEXTROSE 5% 50 ML IV ONE (15:00)
[2017-04-07] MEDS ORDERED: NACL 0.9% 1,000 ML IV ONE ×2 (15:05→15:25)
[2017-04-07] MEDS ORDERED: PIPERACILLIN/TAZOBACTAM 3.375 GM VIAL IV ONE (15:17)
[2017-04-07] MEDS ORDERED: VANCOMYCIN PER PHARMACY MC PRN (15:25)
--- NOTE | 2017-04-07 15:35 | NUR ---
can not do med reconciliation;pt unable to recall medicine he is taking.
--- NOTE | 2017-04-07 15:45 | NUR ---
Patient will be admitted to care of Dr Verduzco. Admited to MS. Will go to room 120 b. Belongings list completed. Report to SHELLY Smith.
[2017-04-07 16:00] VITALS: BP 148/79
--- NOTE | 2017-04-07 16:00 | NUR ---
RECEIVED PT VIA Stockr[employer]GRIS, PT IS A/OX4, AMBULATORY, IV IS ON THE RT AC, PATENT, INTACT, FLUSHING WELL, PT HAS SMALL WOUND ON THE RT FOOT, 5TH TOE, PT HAS VERTICAL CHEST SCAR FROM POST CABG SURGERY ON 09/2016, NO S/S OF RESPIRATORY DISTRESS OR DISCOMFORT NOTED, ORIENTED PT TO ROOM, DISCUSSED PLAN OF CARE WITH PT, PT VERBALIZED UNDERSTANDING, SAFETY/FALL PRECAUTIONS ARE IN PLACE, CALL LIGHT WITHIN REACH, WILL CONTINUE TO MONITOR.
--- NOTE | 2017-04-07 16:05 | NUR ---
NS IVF STARTED AT 100ML/HR AT THIS TIME.
[2017-04-07] MEDS: VANCOMYCIN 1GM/DEXT 5% PREMIX 200 ML IV SCH (18:03)
--- NOTE | 2017-04-07 18:15 | NUR ---
IVPB ANTIBIOTIC HUNG FOR PT, PT TOLERATED WELL, NO REACTION, CALL LIGHT WITHIN REACH.
[2017-04-07] MEDS ORDERED: ONDANSETRON 4 MG/2 ML VIAL IVP PRN (18:30)
--- NOTE | 2017-04-07 19:25 | NUR ---
PATIENT IS CURRENTLY AWAKE ALERT RESTING IN BED ICELANDIC SPEAKING.HAS RT FOOT AND RT LOWER LEG ELEVATED ON A PILLOW AND HIS RT FOOT HAS SOME SWELLING NOTED.PATIENT IS CURRENTLY RECEIVING HIS VANCOMYCIN IV ANTIBIOTIC IV SITE CURRENTLY PATENT IVF INFUSING WELL.PATIENT ABLE TO MAKE NEEDS KNOWN.CALL LIGHT WITHIN REACH WILL CONTINUE TO MONITOR.
--- NOTE | 2017-04-07 19:25 | NUR ---
ENDORSED PT TO [employer] DEAN NURSE FOR CONTINUITY OF CARE, PT STABLE AT THIS TIME.
--- NOTE | 2017-04-07 19:26 | NUR ---
Patient's Plan of Care was discussed and reviewed with CHAVA: CHIN LARSEN
--- NOTE | 2017-04-07 19:37 | NUR ---
PATIENT IS CURRENTLY AWAKE ALERT ORIENTED RESTING IN BED DENIES PAIN IV SITE TO RT AC G#20 CURRENTLY PATENT.RT FOOT ELEVATED ON A PILLOW.NEEDS WILL BE MET.CALL LIGHT WITHIN REACH WILL CONTINUE TO OBSERVE.
[2017-04-07 20:00] VITALS: BP 134/75
[2017-04-07] MEDS: METOPROLOL 25 MG TAB PO SCH (20:45)
[2017-04-07] MEDS: ACETAMINOPHEN 325 MG TAB PO PRN (20:45)
[2017-04-07] MEDS: ENOXAPARIN 30 MG/0.3 ML SYR SUBQ SCH (20:49)
[2017-04-07] MEDS: MORPHINE SULFATE 2 MG/ML SYR IVP PRN (21:07)
--- NOTE | 2017-04-07 21:37 | NUR ---
ACCUCHECK DONE BLOOD SUGAR RESULT 330MG/DL
[2017-04-07] MEDS: BLOOD GLUCOSE MONITORING 1 DEV DEV FS SCH (21:46)
[2017-04-07] MEDS: INSULIN DETEMIR 100 UNITS/ML 10 ML VIAL SUBQ SCH (21:47)
[2017-04-07] MEDS: INSULIN LISPRO SLIDING SCALE 100 UNITS/ML VIAL SUBQ PRN (21:55)
[2017-04-08] VITALS: BP 100/62
--- NOTE | 2017-04-08 00:10 | NUR ---
PATIENT SLEEPING IN BED DENIES PAIN AT THIS TIME.CALL LIGHT WITHIN REACH.
--- NOTE | 2017-04-08 03:32 | NUR ---
PATIENT IS SLEEPING NO DISTRESS WILL CONTINUE TO MONITOR.WILL CONTINUE TO OBSERVE.
[2017-04-08] MEDS: MORPHINE SULFATE 2 MG/ML SYR IVP PRN ×3 (04:50→18:45)
[2017-04-08] MEDS: BLOOD GLUCOSE MONITORING 1 DEV DEV FS SCH ×3 (06:07→20:41)
--- NOTE | 2017-04-08 06:20 | NUR ---
PATIENT IS CURRENTLY RESTING IN BED IN NO DISTRESS CURRENTLY SLEEPING.CALL LIGHT WITHIN REACH WILL CONTINUE TO MONITOR.
--- NOTE | 2017-04-08 07:17 | NUR ---
PATIENT STABLE SLEEPING REPORT ENDORSED TO RN ELPIDIO AT BEDSIDE SHE WILL RESUME CARE OF THE PATIENT.
--- NOTE | 2017-04-08 07:25 | NUR ---
RECEIVED REPORT FROM WESTERN TACK ASSEMBLY LINE WORKER NURSE, PT IS SLEEPING IN BED BUT EASILY AWAKEN, PT IS A/OX4, AMBULATORY, PT HAS IV ON THE RT AC, PATENT, INTACT, FLUSHING WELL, PT HAS OPEN WOUND ON RIGHT FOOT, 5TH TOE, OPEN TO AIR, NO S/S OF RESPIRATORY DISTRESS OR DISCOMFORT NOTED, DISCUSSED PLAN OF CARE WITH PT, PT VERBALIZED UNDERSTANDING, SAFETY/FALL PRECAUTIONS ARE IN PLACE, CALL LIGHT WITHIN REACH, WILL CONTINUE TO MONITOR.
[2017-04-08 08:00] VITALS: BP 139/72
--- NOTE | 2017-04-08 08:24 | NUR ---
PATIENT HAS BEEN SCREENED AND CATEGORIZED MODERATE RISK. PATIENT WILL BE SEEN WITHIN 3-5 DAYS OF ADMISSION. 04/10/17 TO 04/12/[address]
[2017-04-08] MEDS: METOPROLOL 25 MG TAB PO SCH ×2 (09:03→20:38)
--- NOTE | 2017-04-08 09:03 | NUR ---
DUE MEDICATIONS GIVEN, PT TOLERATED WELL, CALL LIGHT IS WITHIN REACH.
[2017-04-08] MEDS: ATORVASTATIN 20 MG TAB PO SCH (09:04)
--- NOTE | 2017-04-08 10:44 | NUR ---
PT IS TALKING ON HIS CELL PHONE AT THIS TIME, CALL LIGHT IS WITHIN REACH.
[2017-04-08] MEDS: VANCOMYCIN 1GM/DEXT 5% PREMIX 200 ML IV SCH (11:10)
[2017-04-08] MEDS: INSULIN LISPRO SLIDING SCALE 100 UNITS/ML VIAL SUBQ PRN ×3 (12:20→20:43)
--- NOTE | 2017-04-08 12:27 | NUR ---
PATIENT SITTING UP IN BED, EATING LUNCH, CALL LIGHT WITHIN REACH.
--- NOTE | 2017-04-08 14:50 | NUR ---
PATIENT RESTING IN BED TALKING ON HIS CELL PHONE, CALL LIGHT WITHIN REACH.
[2017-04-08 16:00] VITALS: BP 142/67
--- NOTE | 2017-04-08 17:00 | NUR ---
PATIENT RESTING IN BED, WATCHING TV, CALL LIGHT WITHIN REACH.
[2017-04-08] MEDS: ACETAMINOPHEN 325 MG TAB PO PRN ×2 (17:45→20:38)
--- NOTE | 2017-04-08 19:12 | NUR ---
ENDORSED PT TO [facility] NURSE FOR CONTINUITY OF CARE, PT STABLE AT THIS TIME.
--- NOTE | 2017-04-08 19:12 | NUR ---
PATIENT IS CURRENTLY AWAKE ALERT DANISH SPEAKING RESTING IN BED.PATIENT RT FOOT ELEVATED ON A PILLOW AND SOME SWELLLING CONTINUE TO BE NOTED TO FOOT.PATIENT DENIES PAIN AT THIS TIME.CALL LIGHT WITHIN REACH.
[2017-04-08 20:00] VITALS: BP 139/74
--- NOTE | 2017-04-08 20:38 | NUR ---
EDUCATION GIVEN ON HIS ROUTINE NIGHT TIME MEDICATIONS PATIENT VERBALIZES UNDERSTANDING AND TOOK HIS MEDICATION. PATIENT DENIES PAIN. CALL LIGHT WITHIN REACH WILL CONTINUE TO OBSERVE.
[2017-04-08] MEDS: ENOXAPARIN 30 MG/0.3 ML SYR SUBQ SCH (20:40)
[2017-04-08] MEDS: INSULIN DETEMIR 100 UNITS/ML 10 ML VIAL SUBQ SCH (20:41)
--- NOTE | 2017-04-08 21:30 | NUR ---
Patient's Plan of Care was discussed and reviewed with PRIMER BOXER: CHIN BRUSH
--- NOTE | 2017-04-08 22:12 | NUR ---
MD AGUDELO CAME AND WAS UPDATED THAT MD HURST TAX ASSESSOR STILL HASN'T CAME TO SEE THE PATIENT AND I ALSO INFORMED HIM THAT PATIENT HAD A TEMP OF 100.0 TONIGHT AND PATIENT COMPLAINS OF FEELING HOT AND I GAVE HIM SOME TYLENOL. I ALSO ASKED MD IF PATIENT WILL HAVE SOME LABS RECHECKED TOMORROW MD SAID HE WILL PUT ORDERS IN. CAME AND SAW THE PATIENT.
--- NOTE | 2017-04-09 00:13 | NUR ---
PATIENT IS CURRENTLY SLEEPING IN BED IN NO DISTRESS CONTINUES TO HAVE HIS RT FOOT ELEVATED ON A PILLOW.CALL LIGHT WITHIN REACH.
--- NOTE | 2017-04-09 02:27 | NUR ---
PATIENT IS CURRENTLY SLEEPING IN NO DISTRESS WILL CONTINUE TO MONITOR.
--- NOTE | 2017-04-09 03:50 | NUR ---
PATIENT IS CURRENTLY SLEEPING IN BED AT THIS TIME CALL LIGHT WITHIN REACH WILL CONTINUE TO MONITOR.
[2017-04-09] MEDS: MORPHINE SULFATE 2 MG/ML SYR IVP PRN ×3 (04:22→22:30)
[2017-04-09 05:00] VITALS: BP 132/63
[2017-04-09] MEDS: BLOOD GLUCOSE MONITORING 1 DEV DEV FS SCH ×4 (05:33→20:20)
[2017-04-09] MEDS: INSULIN LISPRO SLIDING SCALE 100 UNITS/ML VIAL SUBQ PRN ×3 (05:49→21:28)
--- NOTE | 2017-04-09 06:15 | NUR ---
PATIENT IS CURRENTLY RESTING IN BED SLEEPING RT LEG CONTINUES TO BE ELEVATED ON A PILLOW.PATIENT IN NO DISTRESS WILL CONTINUE TO MONITOR.
[2017-04-09] MEDS: VANCOMYCIN 1GM/DEXT 5% PREMIX 200 ML IV SCH ×2 (07:10→21:41)
--- NOTE | 2017-04-09 07:20 | NUR ---
PATIENT IS CURRENT RESTING IN BED STABLE NO PAIN AT THIS TIME.I INFORMED SHELLY MAGALLANES THAT Livier GOMEZ CAME TO SEE THE PATIENT AND WANTS TO MAKE SURE MD HURST COMES TO SEE THE PATIENT.SHELLY MAGALLANES WILL RESUME CARE OF THE PATIENT.
--- NOTE | 2017-04-09 07:40 | NUR ---
RECEIVED REPORT FROM RNP NURSE, PT IS RESTING IN BED, PT IS A/OX4, AMBULATORY, PT HAS IV ON THE RT AC, PATENT, INTACT, FLUSHING WELL, PT HAS OPEN WOUND ON RIGHT FOOT, 5TH TOE, OPEN TO AIR, NO S/S OF RESPIRATORY DISTRESS OR DISCOMFORT NOTED, DISCUSSED PLAN OF CARE WITH PT, PT VERBALIZED UNDERSTANDING, SAFETY/FALL PRECAUTIONS ARE IN PLACE, CALL LIGHT WITHIN REACH, WILL CONTINUE TO MONITOR.
[2017-04-09 08:00] VITALS: BP 139/73
[2017-04-09] MEDS: METOPROLOL 25 MG TAB PO SCH ×2 (09:00→20:22)
[2017-04-09] MEDS: ATORVASTATIN 20 MG TAB PO SCH (09:00)
--- NOTE | 2017-04-09 09:07 | NUR ---
PATIENT COMPLAINING OF RIGHT FOOT PAIN, WILL MEDIATE WITH PRN PAIN MEDICATION AT THIS TIME
--- NOTE | 2017-04-09 10:00 | NUR ---
PT SLEEPING IN BED AT THIS TIME, CALL LIGHT WITHIN REACH.
--- NOTE | 2017-04-09 12:30 | NUR ---
PT RESTING IN BED TALKING ON HIS CELL PHONE, CALL LIGHT WITHIN REACH.
--- NOTE | 2017-04-09 15:15 | NUR ---
PT RESTING IN BED WATCHING TV.
[2017-04-09 16:00] VITALS: BP 155/88
[2017-04-09] MEDS: ACETAMINOPHEN 325 MG TAB PO PRN (16:50)
--- NOTE | 2017-04-09 17:40 | NUR ---
DR. AGUDELO IN TO SEE PT AT THIS TIME.
--- NOTE | 2017-04-09 18:30 | NUR ---
CALLED DR. HURST'S OFFICE I REACHED THE OFFICE VOICEMAIL I LET THEM KNOW I WAS CALLING FROM [facility] TO FOLLOW UP WITH A CONSULT THAT WAS PENDING FOR THE PATIENT. I LEFT A CALL BACK NUMBER.
--- NOTE | 2017-04-09 19:25 | NUR ---
ENDORSED PT TO NEW PRODUCT TRAINER NURSE FOR CONTINUITY OF CARE, PT STABLE AT THIS TIME.
--- NOTE | 2017-04-09 19:30 | NUR ---
PATIENT IS CURRENTLY RESTING IN BED AWAKE ALERT ORIENTED CONTINUES TO HAVE HIS RT FOOT ELEVATED ON A PILLOW AND SLIGHTLY SWOLLEN.PATIENT HAS NO COMPLAINS OF PAIN AT THIS TIME.IV SITE PATENT AND INTACT WILL CONTINUE TO MONITOR.CALL LIGHT WITHIN REACH.
--- NOTE | 2017-04-09 19:31 | NUR ---
Patient's Plan of Care was discussed and reviewed with CLEANING TEAM MEMBER: CHIN BRUSH
[2017-04-09 20:00] VITALS: BP 125/71
[2017-04-09] MEDS: ENOXAPARIN 30 MG/0.3 ML SYR SUBQ SCH (20:24)
--- NOTE | 2017-04-09 20:45 | NUR ---
PATIENT IS COMPLAINING THAT HIS IV WAS LEAKING AND I CHECKED THE IV LINE AND IT IS LEAKING SO THE IV WAS REMOVED AND AREA CLEANED WITH ALCOHOL.
[2017-04-09] MEDS: INSULIN DETEMIR 100 UNITS/ML 10 ML VIAL SUBQ SCH (21:27)
--- NOTE | 2017-04-09 22:05 | NUR ---
I RESTARTED A NEW IV LINE TO RT HAND G#22 AT FIRST ATTEMPT WITH GOOD BLOOD RETURN AND PATIENT CONTINUES TO RECEIVE HIS VANCOMYCIN ANTIBIOTIC IV.PATIENT TOLERATED PROCEDURE WELL
[2017-04-10] VITALS: BP 135/75
--- NOTE | 2017-04-10 00:50 | NUR ---
PATIENT IS CURRENTLY RESTING IN BED AT THIS TIME.READY TO GO TO SLEEP.CALL LIGHT WITHIN REACH WILL CONTINUE TO MONITOR.
--- NOTE | 2017-04-10 02:21 | NUR ---
PATIENT SLEEPING COMFORTABLY IN BED WILL CONTINUE TO MONITOR.CALL LIGHT WITHIN REACH.
--- NOTE | 2017-04-10 05:17 | NUR ---
PATIENT TELLS ME THAT HE FEELS LIKE HE HASN'T GOTTEN A GOOD REST DURING THE NIGHT.PATIENT TELLS ME THAT HE IS FEELING HOT AND COLD I CHECKED HIS TEMPERATURE AND ITS CURRENTLY 98.6 AND I EXPLAINED TO THE PATIENT THAT HIS GETTING HIS ANTIBIOTICS ALREADY BUT WE STILL NEED THE FILLER SHREDDER HELPER TO COME AND SEE HIM. PATIENT VERBALIZES UNDERSTANDING.
[2017-04-10] MEDS: BLOOD GLUCOSE MONITORING 1 DEV DEV FS SCH ×4 (05:52→21:00)
[2017-04-10] MEDS: INSULIN LISPRO SLIDING SCALE 100 UNITS/ML VIAL SUBQ PRN ×4 (06:02→23:01)
--- NOTE | 2017-04-10 07:05 | NUR ---
PATIENT STABLE SLEEPING IN BED.
--- NOTE | 2017-04-10 07:37 | NUR ---
PATIENT STABLE REPORT ENDORSED TO SHELLY ALVAREZ.
--- NOTE | 2017-04-10 07:38 | NUR ---
REPORT RECEIVED FROM CHIP DRIER NURSE, PT RESTING QUIETLY IN NAD, RESP EVEN UNLABORED ON ROOM AIR, DENIES PAIN OR DISCOMFORT, RIGTH 5TH TOE BASE WITH PURPLE DISCOLORATION, SLIGHT SWELLING NOTED, PLAN OF CARE REVIEWED, PT VERBALIZED FULL UDNERSTANDING, CALL COBB WITHIN REACH, SIDE RAILS UP, WILL CONTINUE TO MONITOR.
[2017-04-10 08:00] VITALS: BP 143/80
[2017-04-10] MEDS: ATORVASTATIN 20 MG TAB PO SCH (10:05)
[2017-04-10] MEDS: METOPROLOL 25 MG TAB PO SCH ×2 (10:05→21:39)
[2017-04-10] MEDS: MORPHINE SULFATE 2 MG/ML SYR IVP PRN ×2 (10:06→21:24)
[2017-04-10] MEDS: VANCOMYCIN 1GM/DEXT 5% PREMIX 200 ML IV SCH ×2 (10:06→21:31)
--- NOTE | 2017-04-10 10:36 | NUR ---
PT STATES RIGHT FOOT PAIN IS BETTER AFTER MORPHINE, PT RESTING QUIETLY IN NAD, DENIES ANY IMMEDIATE NEEDS AT THIS TIME, WILL CONTINUE TO MONITOR.
--- NOTE | 2017-04-10 12:00 | NUR ---
PATIENT SITTING UP COMFORTABLY WATCHING TV WITH LUNCH TRAY IN FRONT OF HIM. NO ACUTE DISTRESS NOTED. RESPIRATIONS EVEN, UNLABORED. RIGHT HAND IV SL INTACT, PATENT. RIGHT LEG CONTINUES TO BE ELEVATED WITH A PILLOW TO DECREASE EDEMA. RIGHT 5TH TOE WOUND OPEN TO AIR. DENIES ANY PAIN. SAFETY MEASURES IN PLACE, MAX LIGHT WITHIN REACH. WILL CONTINUE TO MONITOR.
[2017-04-10] MEDS ORDERED: LIDOCAINE 1% 500 MG/50 ML VIAL INJ SCH (13:36)
--- NOTE | 2017-04-10 14:01 | NUR ---
DR. GAN AT BEDSIDE. CONSENT FOR EXCISIONAL DEBRIDEMENT OF ULCER AND INCISION AND DRAINAGE OF BULLA, RIGHT FOOT OBTAINED.
--- NOTE | 2017-04-10 15:00 | NUR ---
SPECIMENS COLLECTED BY DR GAN SENT TO LAB.
--- NOTE | 2017-04-10 15:04 | NUR ---
CM NOTE INITIAL REVIEW FAXED TO [facility] (FAX# [phone], ATTN: YOLANDE #[phone]) AND [facility] (FAX# [phone])
[2017-04-10 16:00] VITALS: BP 139/74
--- NOTE | 2017-04-10 16:40 | NUR ---
PATIENT LYING IN BED. NO ACUTE DISTRESS NOTED. RESPIRATIONS EVEN, UNLABORED. MEDICATIONS DUE GIVEN. COMPLAINS OF PAIN, WILL MEDICATE PER ORDERS. RIGHT FOOT BANDAGED BY DR. GAN, CONTINUES TO BE ELEVATED WITH PILLOW, +1 PITTING EDEMA ON RIGHT FOOT. SAFETY MEASURES IN PLACE, CALL LIGHT WITHIN REACH. WILL CONTINUE TO MONITOR.
[2017-04-10] MEDS: ACETAMINOPHEN 325 MG TAB PO PRN (16:46)
--- NOTE | 2017-04-10 19:28 | NUR ---
REPORT GIVEN TO DOUGH CATCHER NURSE FLAQUITA MAR IN STABLE CONDITION.
--- NOTE | 2017-04-10 19:29 | NUR ---
REPORT RECEIVED FROM DAY SHIFT NURSE, RESP EVEN UNLABORED ON ROOM AIR, IV TO R HAND 22G, PATENT AND INTACT DENIES PAIN OR DISCOMFORT, RIGTH 5TH TOE BASE WITH PURPLE DISCOLORATION, SLIGHT SWELLING NOTED, PLAN OF CARE REVIEWED, PT VERBALIZED FULL UDNERSTANDING, CALL COBB WITHIN REACH, SIDE RAILS UP, WILL CONTINUE TO MONITOR.
[2017-04-10] MEDS: ENOXAPARIN 30 MG/0.3 ML SYR SUBQ SCH (21:31)
[2017-04-10] MEDS: INSULIN DETEMIR 100 UNITS/ML 10 ML VIAL SUBQ SCH (22:30)
--- NOTE | 2017-04-10 23:30 | NUR ---
PT RESTING COMFORTABLY IN BED, NO S/S OF DISTRESS NOTED. ALL SAFETY PRECAUTIONS MET, CALL LIGHT WITHIN REACH, WILL CONTINUE TO MONITOR.
[2017-04-11] VITALS: BP 126/83
--- NOTE | 2017-04-11 | NUR ---
PTS VITALS STABLE, NO S/S OF DISTRESS NOTED. CALL LIGHT WITHIN REACH
--- NOTE | 2017-04-11 04:21 | NUR ---
PT RESTING COMFORTABLY IN BED, NO S/S OF DISTRESS NOTED. CALL LIGHT WITHIN REACH
[2017-04-11] MEDS: BLOOD GLUCOSE MONITORING 1 DEV DEV FS SCH ×4 (06:16→21:11)
[2017-04-11] MEDS: INSULIN LISPRO SLIDING SCALE 100 UNITS/ML VIAL SUBQ PRN ×4 (07:02→21:19)
--- NOTE | 2017-04-11 07:24 | NUR ---
ENDORSED PLAN OF CARE TO AM NURSE, PT IN STABLE CONDITION. NO S/S OF DISTRESS NOTED. CALL LIGHT IS WITHIN REACH
[2017-04-11 08:00] VITALS: BP 124/73
[2017-04-11] MEDS: VANCOMYCIN 1GM/DEXT 5% PREMIX 200 ML IV SCH (08:48)
--- NOTE | 2017-04-11 08:48 | NUR ---
CRITICAL RESULT FROM LAB REPORTED. VANCOMYCIN TROUGH: 20.1. PHARMACY NOTIFIED. HOLD 0900 PER PHARMACY. PHARMACY TO [facility].
[2017-04-11] MEDS: ATORVASTATIN 20 MG TAB PO SCH (09:54)
[2017-04-11] MEDS: METOPROLOL 25 MG TAB PO SCH ×2 (10:02→21:07)
--- NOTE | 2017-04-11 11:00 | NUR ---
PATIENT SITTING BED. NO ACUTE DISTRESS NOTED. COMPLAINS OF PAIN ON RIGHT FOOT. WILL MEDICATE PER ORDERS. RESPIRATIONS EVEN UNLABORED. DRESSING REMAINS CDI. RIGHT FOOT ELEVATED ON THE PILLOW. SAFETY MEASURES IN PLACE. CALL LIGHT WITHIN REACH. WILL CONTINUE TO MONITOR
[2017-04-11] MEDS: MORPHINE SULFATE 2 MG/ML SYR IVP PRN ×2 (11:13→20:26)
--- NOTE | 2017-04-11 13:20 | NUR ---
HANDSTITCHING MACHINE COLLAR FELLER DR. GAN AT BEDSIDE EXPLAINING AND OBTAINING CONSENT FOR PARTIAL 5TH TOE AMPUTATION SCHEDULED FOR TOMORROW. DR. GAN CHANGED WOUND DRESSING ON RIGHT FOOT.
--- NOTE | 2017-04-11 15:02 | NUR ---
FAXED CONCURRENT REVIEW TO [facility] [phone] PHONE DECEMBER [phone]
[2017-04-11 16:00] VITALS: BP 123/61
--- NOTE | 2017-04-11 17:00 | NUR ---
DR. MISHRA AT BEDSIDE FOR DRESSING CHANGE AND CONSENT FOR SURGERY TOMORROW OBTAINED.
--- NOTE | 2017-04-11 19:30 | NUR ---
REPORT GIVEN TO MARKETING OFFICER NURSE HARSHA. PATIENT IN STABLE CONDITION.
--- NOTE | 2017-04-11 19:30 | NUR ---
Patient's Plan of Care was discussed and reviewed with CHIEF EXECUTIVE OFFICER: HARSHA GARCIA
--- NOTE | 2017-04-11 19:31 | NUR ---
RECD. RESTING IN BED, AWAKE, A/OX4. RESPIRATION EVEN AND UNLABORED. IV OF NS INFUSING AT TKO AT THE RIGHT HAND G 22. RIGHT FOOT WITH KERLIX DRESSING, DRY AND INTACT. UNDERSTANDING.PAIN IN THE SITE 07/26, STATED TOLERABLE. WILL CALL NURSE WHEN PAIN INCREASES. PLAN OF CARE FOR THE SHIFT DISCUSSED. VERBALIZED UNDERSTANDING.
[2017-04-11] MEDS: ENOXAPARIN 30 MG/0.3 ML SYR SUBQ SCH (21:00)
[2017-04-11] MEDS ORDERED: VANCOMYCIN 750 MG in NACL 0.9% 250 ML IV SCH (21:00)
[2017-04-11] MEDS: INSULIN DETEMIR 100 UNITS/ML 10 ML VIAL SUBQ SCH (21:15)
--- NOTE | 2017-04-11 22:25 | NUR ---
HAD SMALL HARD STOOL, OFFERED PRUNE JUICE BUT REFUSED. ENCOURAGED TO DRINK MORE WATER.
[2017-04-12] VITALS (9 sets, daily range): BP systolic 126–145; BP diastolic 65–93
--- NOTE | 2017-04-12 | NUR ---
SLEEPING COMFORTABLY IN BED.
[2017-04-12] MEDS: BLOOD GLUCOSE MONITORING 1 DEV DEV FS SCH ×4 (06:29→21:03)
[2017-04-12] MEDS: BUPIVACAINE-MPF 0.5% 30 ML VIAL INJ ONE ×2 (07:17→11:05)
[2017-04-12] MEDS ORDERED: MORPHINE SULFATE 4 MG/ML SYR ONE (07:18)
[2017-04-12] MEDS ORDERED: SEVOFLURANE 250 ML BTL INH ONE (07:25)
[2017-04-12] MEDS ORDERED: LABETALOL 100 MG/20 ML VIAL ONE (07:25)
[2017-04-12] MEDS ORDERED: DEXAMETHASONE 4 MG/ML VIAL ONE (07:25)
[2017-04-12] MEDS ORDERED: ONDANSETRON 4 MG/2 ML VIAL ONE (07:25)
--- NOTE | 2017-04-12 07:30 | NUR ---
TAKEN TO OR VIA BED FOR SURGERY TODAY. CONDITION REMAIN STABLE.
[2017-04-12] MEDS ORDERED: VANCOMYCIN PER PHARMACY MC PRN (07:35)
[2017-04-12] MEDS ORDERED: MIDAZOLAM 2 MG/2 ML VIAL ONE (07:38)
[2017-04-12] MEDS ORDERED: fentaNYL 0.05 MG/ML VIAL ONE (07:39)
[2017-04-12] MEDS: NACL 0.9% 1,000 ML IV SCH ×3 (07:59→23:04)
[2017-04-12] MEDS ORDERED: diphenhydrAMINE 50 MG/ML VIAL IVP PRN (08:00)
[2017-04-12] MEDS ORDERED: HYDROmorphone 1 MG/ML AMP IVP PRN (08:00)
[2017-04-12] MEDS ORDERED: ONDANSETRON 4 MG/2 ML VIAL IVP PRN (08:00)
[2017-04-12] MEDS ORDERED: MEPERIDINE 25 MG/ML SYR IVP PRN (08:00)
[2017-04-12] MEDS ORDERED: BLOOD GLUCOSE MONITORING 1 DEV DEV FS SCH (08:13)
[2017-04-12] MEDS ORDERED: MEPERIDINE 25 MG/ML SYR ONE ×2 (08:47→09:11)
[2017-04-12] MEDS: METOPROLOL 25 MG TAB PO SCH ×2 (09:41→21:13)
[2017-04-12] MEDS: ATORVASTATIN 20 MG TAB PO SCH (09:41)
--- NOTE | 2017-04-12 09:45 | NUR ---
ADMINISTERED MORNING MEDS. PT TOLERATED WELL. FAMILY MEMBER AT BEDSIDE. WILL CONTINUE TO MONITOR PT.
--- NOTE | 2017-04-12 11:42 | NUR ---
PT RETURNED TO THE UNIT WITH 2 OR NURSES. PT IS AWAKE AND ORIENTED. V/S WITHIN NORMAL RANGE. PT IS COMFORTABLE. PT R FOOT IS WRAPPED. ABLE TO WIGGLE HIS TOES. WILL CONTINUE WITH POST OP V/S Q 15. Addendum: 04/12/17 at 1144 by Mireya Jade RN ACTUAL TIME WAS 0920
--- NOTE | 2017-04-12 11:44 | NUR ---
PT RESTING COMFORTABLY. NO SIGNS OF DISTRESS. WILL CONTINUE WITH MONITOR PT.
--- NOTE | 2017-04-12 12:52 | NUR ---
04/12/17 RD INITIAL ASSESSMENT COMPLETED PLEASE REFER TO NUTRITION ASSESSMENT UNDER CARE ACTIVITY FOR ESTIMATED NUTRITIONAL NEEDS. 1. CONTINUE CLEAR LIQUID DIET, ADVANCE TOLERATED TO 60G CONSISTENT CARBOHYDRATE DIET 2. PROVIDE NUTRITION THERAPY EDUCATION NEEDED 3. RD TO FOLLOW-UP 2-3 DAYS, HIGH RISK MITZY LIM RD
[2017-04-12] MEDS: LEVOFLOXACIN 750 MG/D5W PREMIX 150 ML IV SCH (12:57)
[2017-04-12] MEDS: INSULIN LISPRO SLIDING SCALE 100 UNITS/ML VIAL SUBQ PRN ×3 (13:05→21:06)
--- NOTE | 2017-04-12 15:00 | NUR ---
PT RESTING COMFORTABLY. NO SIGNS OF DISTRESS. WILL CONTINUE TO MONITOR PT.
[2017-04-12] MEDS ORDERED: VANCOMYCIN 750 MG in NACL 0.9% 250 ML IV SCH (17:00)
--- NOTE | 2017-04-12 17:26 | NUR ---
FAXED CONCURRENT REVIEW TO [facility] [phone] PHONE SAUNDRA [phone]
[2017-04-12] MEDS: MORPHINE SULFATE 2 MG/ML SYR IVP PRN (18:48)
--- NOTE | 2017-04-12 18:50 | NUR ---
FLUSHED IV SITE. PATENT. ADMINISTERED PAIN MED. 02/23. PT TOLERATED WELL.
--- NOTE | 2017-04-12 19:15 | NUR ---
ENDORSED PT TO THE SECURITY OPERATIONS ENGINEER NURSE AT BEDSIDE FOR CONTINUITY OF CARE. PT IN STABLE CONDITION.
--- NOTE | 2017-04-12 19:20 | NUR ---
RECEIVED FROM AM RN IN BED AWAKE AND ALERT. NO S OB. ON THE PHONE AND VERBALIZING WELL. DX. OF RIGHT FOOT OSTEOMYELITIS. S/P I AND D AND AMPUTATION OF DIGIT YESTERDAY. DRESSING INTACT AND DRY. NO BLEEDING NOTED. DENIOES PAIN AT THIS TIME. CALL LIGHT WITH IN REACH .
[2017-04-12] MEDS: INSULIN DETEMIR 100 UNITS/ML 10 ML VIAL SUBQ SCH (21:04)
[2017-04-12] MEDS: ENOXAPARIN 30 MG/0.3 ML SYR SUBQ SCH (21:15)
--- NOTE | 2017-04-12 23:05 | NUR ---
SLEEPING AT THIS TIME. FLACC 0-. DRESSING INTACT AND NO BLEEDING NOTED. IVF SITE PATENT AND NO INFILTRATION.
[2017-04-13 01:48] VITALS: BP 134/78
[2017-04-13] MEDS: MORPHINE SULFATE 2 MG/ML SYR IVP PRN ×2 (01:59→10:13)
--- NOTE | 2017-04-13 02:13 | NUR ---
MEDICATED WITH MORPHINE 2 MG IVP RT C/O RIGHT FOOT PAIN. VERBALIZES WELL. USES CALL LIGHT FOR HELP. A/O X 4. DRESSING TO RIGHT FOOT INTACT AND NO BLEEDING. USES URINAL TO URINATE. AFEBRILE.
--- NOTE | 2017-04-13 03:00 | NUR ---
CHECKED ON PT. AWAKE AND STATED HE JUST CAME FROM RESTROOM INSIDE HIS ROOM AND HAVE BOWEL MOVEMENT. NO COMPLAINTS AT THIS TIME. HAPPY ABLE TO GO BM. ENCOURAGED TO CALL FOR ANY HELP HE MAY NEED OR IF IN PAIN. "SI". SPEAKS A LITTLE BIT OF JORDANIAN TOO. LITHUANIAN SPEAKING MOSTLY.
--- NOTE | 2017-04-13 04:01 | NUR ---
SLEEPING AT THIS TIME. NO RESTLESSNESS NOTED. ABLE TO USE CALL LIGHT FOR HELP. A/O X 4.
--- NOTE | 2017-04-13 05:06 | NUR ---
SLEEPING. CALL LIGHT AT BEDSIDE AND ABLE TO USE IT. ABLE TO VERBALIZE NEEDS WELL.
[2017-04-13] MEDS: BLOOD GLUCOSE MONITORING 1 DEV DEV FS SCH ×2 (05:52→12:21)
--- NOTE | 2017-04-13 07:24 | NUR ---
ENDORSED TO THE NEXT RN FOR CONTINUITY OF CARE . AWAKE AND ALERT. NO COMPLAINTS DONE AT THIS TIME. DENIES PAIN AT THIS TIME. ABLE TO VERBALIZE SIMPLE NEEDS WELL. DRESSING TO RIGHT FOOT INTACT AND NO BLEEDING NOTED. CALL LIGHT WITH IN REACH.
--- NOTE | 2017-04-13 07:27 | NUR ---
RECEIVED PT REPORT AT BEDSIDE FROM NIGHT NURSE. PATIENT IS AAOX4 AND DENIES PAIN. PT HAS NOTED DRX ON THE R FOOT CLEAN DRY AND INTACT. IV NOTED ON THE R H WITH IVF'S INFUSING WELL. PT ON ROOM AIR. PATIENT WAS EXPLAINED POC FOR TODAY AND VERBALIZED UNDERSTANDING. THE BED IS IN LOW POSITION, CALL LIGHT WITHIN REACH, CONTACT PRECAUTIONS IN PLACE. WILL CONTINUE TO MONITOR.
[2017-04-13 08:00] VITALS: BP 119/54
[2017-04-13] MEDS: NACL 0.9% 1,000 ML IV SCH (08:59)
[2017-04-13] MEDS: ATORVASTATIN 20 MG TAB PO SCH (09:44)
[2017-04-13] MEDS: METOPROLOL 25 MG TAB PO SCH (09:44)
--- NOTE | 2017-04-13 09:44 | NUR ---
ADMINISTERED SCHEDULED MEDICATIONS. PATIENT TOLERATED ACTIVITY WELL. PT THEN C/O OF PAIN 7/10 AT THE R FOOT. WILL ADMINISTER PRN MORPHINE IVP.
--- NOTE | 2017-04-13 10:15 | NUR ---
PATIENT ASKED TO HAVE PT EVAL FOR R FOOT BC HE WANTED A CANE TO WALK WITH. DR AGUDELO IS AWARE AND WILL PLACE ORDERS.
--- NOTE | 2017-04-13 10:45 | NUR ---
SPOKE WITH DR HURST INSIDE SALES PROFESSIONAL SUKHDEV AND SCHEDULED APPOINTMENT FOR PT ON 04/17/17 AT 0830 AM @ DR HURST OFFICE [address] [facility] [address] [place] [address]. [address]DERS FROM DR HURST WERE TO NOT CHANGE DRX ON THE R FT. IS TO FOLLOW UP WITH PATIENT.
--- NOTE | 2017-04-13 11:00 | NUR ---
PATIENT BEING SEEN BY PHYSICAL THERAPY
--- NOTE | 2017-04-13 11:41 | NUR ---
CM NOTE PER ORI EVANGELISTA FOR [facility] ([phone]) ANY HOME HEALTH AGENCY THAT ACCEPTS [facility] IS ACCEPTABLE. PATIENT HAD PREVIOUS SERVICE W/ [facility]; WILL INQUIRE TO RESTART SERVICE.
[2017-04-13] MEDS: LEVOFLOXACIN 750 MG/D5W PREMIX 150 ML IV SCH (13:00)
--- NOTE | 2017-04-13 13:00 | NUR ---
PT REFUSED TO HAVE IV ABX BC OF DURATION OF MEDICATION AND HE HIS RIDE IS HERE TO PICK HIM UP. PT WAS NOTIFIED TO TAKE PRESCRIPTIONS TO [facility] TO CONTINUE HIS ABX REGIME DR CRISTINA.
--- NOTE | 2017-04-13 13:25 | NUR ---
PT PHOTOS OF R FOOT WERE NOT TAKEN PER DR HURST ORDERS. DR HURST IS TO F/U WITH PATIENT. PT HAS F/U APPT ON 04/17/17 AT 0830 AM.
--- NOTE | 2017-04-13 13:30 | NUR ---
PT HAS BEEN DISCHARGED. ALL DISCHARGE INSTRUCTIONS AND PRESCRIPTIONS GIVEN. ALL PAPERWORK SIGNED. ALL QUESTIONS ANSWERED. ALL BELONGINGS AND PRESCRIPTIONS IN PT POSSESSION. PT LEFT WITH CRUTCHES IN HAND. IV WAS DC'ED WITH CANNULA INTACT. WRISTBANDS REMOVED. OFFERED PT WHEELCHAIR. PT VERBALIZED UNDERSTANDING OF CONTINUITY OF CARE. PT IS AWARE TO F/U WITH PCP WITHIN 3-5 DAYS, HAS AN APPOINTMENT WITH DR HURST ON 04/17/17 AT 830 AM, AND HAS PRESCRIPTIONS IN HAND. PT LEFT IN STABLE CONDITION.
--- NOTE | 2017-04-13 14:03 | NUR ---
CM NOTE FAXED H/P, FACESHEET, PT NOTES & ORDERS TO [facility]. OK TO START SERVICE TOMORROW.
--- NOTE | 2017-04-13 14:14 | NUR ---
CM NOTE DME REQUEST FAXED TO [facility] / FAX# [phone]
== END 2017-04-13 13:30 | disposition home health service (06) | DRG 710 ==
LOC: MED 11:54 → MTU 15:23
PROVIDERS: ADMIT Hospitalist; ATTEND Hospitalist
PROC: 0JBQ0ZZ Excision of Right Foot Subcutaneous Tissue and Fascia, Open Approach (ICD-10-PCS; 2017-04-10)
PROC: 0J9Q0ZZ Drainage of Right Foot Subcutaneous Tissue and Fascia, Open Approach (ICD-10-PCS; 2017-04-10)
PROC: 0Y6M0ZF Detachment at Right Foot, Partial 5th Ray, Open Approach (ICD-10-PCS; principal; 2017-04-12 07:30)
DX: A41.9 Sepsis, unspecified organism (principal); E43 Unspecified severe protein-calorie malnutrition; E11.40 Type 2 diabetes mellitus with diabetic neuropathy, unspecified; M86.171 Other acute osteomyelitis, right ankle and foot; E11.51 Type 2 diabetes mellitus with diabetic peripheral angiopathy without gangrene; E87.1 Hypo-osmolality and hyponatremia; E11.69 Type 2 diabetes mellitus with other specified complication; E11.621 Type 2 diabetes mellitus with foot ulcer; I10 Essential (primary) hypertension; Z16.11 Resistance to penicillins; L97.519 Non-pressure chronic ulcer of other part of right foot with unspecified severity; I25.10 Atherosclerotic heart disease of native coronary artery without angina pectoris; L02.611 Cutaneous abscess of right foot; Z95.1 Presence of aortocoronary bypass graft; Z91.19 Patient's noncompliance with other medical treatment and regimen; Z68.25 Body mass index [BMI] 25.0-25.9, adult; Z79.2 Long term (current) use of antibiotics; Z79.899 Other long term (current) drug therapy; Z79.84 Long term (current) use of oral hypoglycemic drugs

== ENCOUNTER 2017-05-30 07:55 | Inpatient (IN) | payer OTHER ==
[~2017-05-30] VITALS: Ht 165.1 cm; Wt 72.6 kg
[~2017-05-30 07:55] MED LIST changes: +ACET-2869 PO; -ACTOPLUS MET 851 TAB PO; -CLEOCIN HCL300 MG PO; +CLIN300C2 PO; +FENO134C2 PO; -FENOFIBRATE MI134 MG PO; +FURO20TA8 PO; -FUROSEMIDE20 M1 PO; +GLIP10TE PO; -GLUCOTROL XL10 M1 PO; -HUMULIN 70 U/ML10 ML SC; -K-VESCENT25 MEQ PO; -LEVAQUIN500 M1 PO; +LEVO500T2 PO; +LIP80 PO; -LIPITOR80 MG PO; +LISI-424 PO; -LISINOPRIL5 MG PO; +METF1TAB34 PO; +METO25TA14 PO; -METOPROLOL25 MG PO; -NORCO 325 MG-51 TAB PO; +PANT40VI PO; -PANTOPRAZOLE SO40 M1 PO; +POTA25TE38 PO
[2017-05-30 08:06] VITALS: BP 144/79
--- NOTE | 2017-05-30 08:19 | NUR ---
PT BACK FROM X [facility]AY VIA W/C,ACCOMPANIED BY LIGHT RAIL OPERATOR.
--- NOTE | 2017-05-30 08:21 | NUR ---
51 M BIB FRIEND WITH C/O REFERRAL FROM MD HURST FOR RIGHT FOOT OSTEOMYELITIS WITH CELLULITIS; PATIENT HAS ONGOING RIGHT WOUND PROBLEM X 6 WKS . HX-DM . DENIES N/V/D; SKIN IS PINK/WARM/DRY; AAOX4 WITH EVEN AND STEADY GAIT; LUNGS CLEAR BL; HR EVEN AND REGULAR; PT DENIES ANY FEVER, CP, SOB, OR COUGH AT THIS TIME; PATIENT STATES PAIN OF 8/10 AT THIS TIME; VSS; PATIENT POSITIONED FOR COMFORT; HOB ELEVATED; BEDRAILS UP X2; BED DOWN. ER MADE AWARE OF PT STATUS. Addendum: 05/30/17 at 0906 by MED1 PT HAD AMPUTED HALF 5TH METATASAL & THE PHALANGES RIGHT FOOT 04/12/17.
--- NOTE | 2017-05-30 09:01 | NUR ---
Patient being evaluated by DR WASHINGTON at bedside.
[2017-05-30] MEDS ORDERED: NACL 0.9% 1,000 ML IV ONE (09:20)
[2017-05-30 09:36] LABS: BASOPHILS # (AUTO) 0.1 K/uL (0.00-0.22); EOSINOPHILS # (AUTO) 0.1 K/uL (0-0.4); EOSINOPHILS % (AUTO) 1.1 % (0.0-4.0); HEMATOCRIT 33.7 % (36-52); HEMOGLOBIN 11.3 g/dL (12.0-18.0); LYMPHOCYTES # (AUTO) 1.4 K/uL (2.0-11.5); LYMPHOCYTES % (AUTO) 13.8 % (20.5-51.1); MEAN CORPUSCULAR HEMOGLOBIN 28 pg (27-31); MEAN CORPUSCULAR HGB CONC 34 g/dL (33-37); MEAN CORPUSCULAR VOLUME 84 fL (80-94); MONOCYTES # (AUTO) 0.4 K/uL (0.8-1.0); MONOCYTES % (AUTO) 4.1 % (1.7-9.3); NEUTROPHILS # (AUTO) 7.9 K/uL (1.8-7.7); PLATELET COUNT (AUTO) 300 K/uL (140-450); RED BLOOD CELL COUNT(AUTO) 4.02 MIL/uL (4.20-6.10); RED CELL DISTRIBUTION WIDTH 14.5 % (11.6-13.7); WHITE BLOOD COUNT (AUTO) 9.9 K/uL (4.8-10.8)
--- NOTE | 2017-05-30 09:37 | NUR ---
WOUND C/S TO R FOOT DONE.
--- NOTE | 2017-05-30 09:40 | NUR ---
FRIEND AT BEDSIDE. Patient appears to be resting comfortably in bed. BP 168/87,P 84/MINS; DENIES HEADACHE OR DIZINESS AT THIS TIME; MD MADE AWARE.. Respirations even and unlabored.WILL CONTINUE TO MONITOR.
[2017-05-30] MEDS ORDERED: NOV7030 SUBQ (09:41)
[2017-05-30 09:49] LABS: ALBUMIN 2.5 g/dL (3.4-5.0); ANION GAP 10.5 (8-16); CARBON DIOXIDE 27.8 mmol/L (21-32); CREATININE 1.1 mg/dL (0.7-1.3); POTASSIUM 4.3 mmol/L (3.5-5.1); TOTAL BILIRUBIN 0.3 mg/dL (0.0-1.0)
[2017-05-30] MEDS ORDERED: LORazepam 2 MG/ML VIAL IVP PRN (10:10)
[2017-05-30] MEDS ORDERED: MORPHINE SULFATE 4 MG/ML SYR IVP PRN (10:10)
[2017-05-30] MEDS ORDERED: ONDANSETRON 4 MG/2 ML VIAL IVP PRN (10:10)
[2017-05-30] MEDS ORDERED: ACETAMINOPHEN 325 MG TAB PO PRN (10:10)
--- NOTE | 2017-05-30 10:23 | NUR ---
APatient will be admitted to care of DR URIZ. Admited to MS. Will go to room 122B. Belongings list completed. Report to SHELLY STRONG.
--- NOTE | 2017-05-30 10:50 | NUR ---
PATIENT ARRIVED FROM ER IN [facility]. PATIENT AMBULATES WITH CRUTCHES. HAS FIFTH TOE ON RIGHT FOOT AMPUTATED, DRESSING IS IN PLACE. CLEAN, DRY AND INTACT. LUNG SOUNDS ARE CLEAR, BOWEL SOUND IS ACTIVE. PATIENT IS AAOX4, SPEAKS LITHUANIAN. ALL PALPABLE PULSES ARE PRESENT. NO SIGNS AND SYMPTOMS OF ACUTE DISTRESS NOTED AT THIS TIME. ORIENTED PATIENT TO ROOM, EXPLAINED CALL LIGHT AND PLACED IT WITHIN REACH. PATIENT VERBALIZED UNDERSTANDING. BED IN LOWEST POSITION, SIDERAILS UP X2, PLACED CRUTCHES WITHIN REACH, AND CALL LIGHT. WILL CONTINUE TO MONITOR.
[2017-05-30 12:00] VITALS: BP 141/77
--- NOTE | 2017-05-30 13:20 | NUR ---
DR MILLER CAME TO EXPLAIN TO THE PATIENT THAT DR HURST IS PLANNING ON DOING SURGERY TOMORROW MORNING. PATIENT VERBALIZED UNDERSTANDING. ORDERS TO FOLLOW.
--- NOTE | 2017-05-30 13:30 | NUR ---
PATIENT TO BE NPO AFTER MIDNIGHT. CONSENT FOR SURGERY SIGNED AND DR MILLER EXPLAINED THE PROCEDURE TO THE PATIENT.
--- NOTE | 2017-05-30 15:00 | NUR ---
PATIENT RESTING IN BED. WILL CONTINUE TO MONITOR.
[2017-05-30 16:00] VITALS: BP 164/79
[2017-05-30] MEDS ORDERED: INFLUENZA VIRUS VACCINE QUAD 0.5 ML SYR IMVAC SCH (17:10)
[2017-05-30] MEDS ORDERED: INSULIN LISPRO SLIDING SCALE 100 UNITS/ML VIAL SUBQ PRN (17:45)
[2017-05-30] MEDS ORDERED: DEXTROSE 50% 50 ML SYR IVP PRN ×2 (17:45)
[2017-05-30] MEDS: INSULIN LISPRO SLIDING SCALE 100 UNITS/ML VIAL SUBQ PRN ×2 (18:32→21:31)
--- NOTE | 2017-05-30 19:20 | NUR ---
ENDORSED PATIENT TO AIR REDUCTION EQUIPMENT OPERATOR RN FOR CONTINUITY OF CARE. PATIENT IN STABLE CONDITION.
--- NOTE | 2017-05-30 19:25 | NUR ---
RECEIVED REPORT FROM AM NURSE. PT IS AAOX4, RESTING COMFORTABLY IN BED. NO SIGNS OF ACUTE DISTRESS. ON ROOM AIR. AMBULATORY WITH CRUTCHES AT THE BEDSIDE. SKIN COLOR APPROPRIATE TO ETHNICITY, SKIN TEMP WARM TO TOUCH. RESPIRATIONS EVEN AND UNLABORED. IV ACCESS INTACT, PATENT AND ASYMPTOMATIC. PLAN OF CARE DISCUSSED, PT VERBALIZED UNDERSTANDING. BED IN LOW POSITION, BILATERAL HALF SIDE RAILS UP, CALL LIGHT WITHIN REACH, WILL CONTINUE TO MONITOR.
[2017-05-30 20:00] VITALS: BP 134/83
[2017-05-30] MEDS ORDERED: BLOOD GLUCOSE MONITORING 1 DEV DEV FS SCH (21:00)
[2017-05-30] MEDS: BLOOD GLUCOSE MONITORING 1 DEV DEV FS SCH (21:26)
[2017-05-30] MEDS: INSULIN DETEMIR 100 UNITS/ML 10 ML VIAL SUBQ SCH (21:31)
[2017-05-31] VITALS (11 sets, daily range): BP systolic 117–156; BP diastolic 65–88
--- NOTE | 2017-05-31 03:28 | NUR ---
PT IS SLEEPING, AROUSABLE TO VOICE. RESPIRATIONS EVEN AND UNLABORED. NO SIGN OF ACUTE DISTRESS NOTED. BED IN LOW POSITION, BILATERAL HALF SIDE RAILS UP, CALL LIGHT WITHIN REACH, WILL CONTINUE TO MONITOR.
[2017-05-31 06:07] LABS: BASOPHILS # (AUTO) 0.1 K/uL (0.00-0.22); BASOPHILS % (AUTO) 0.6 % (0.0-2.0); EOSINOPHILS # (AUTO) 0.2 K/uL (0-0.4); EOSINOPHILS % (AUTO) 2.4 % (0.0-4.0); HEMATOCRIT 31.3 % (36-52); HEMOGLOBIN 10.5 g/dL (12.0-18.0); LYMPHOCYTES % (AUTO) 22.4 % (20.5-51.1); MEAN CORPUSCULAR HEMOGLOBIN 28 pg (27-31); MEAN CORPUSCULAR HGB CONC 34 g/dL (33-37); MEAN CORPUSCULAR VOLUME 84 fL (80-94); MONOCYTES # (AUTO) 0.7 K/uL (0.8-1.0); NEUTROPHILS # (AUTO) 5.7 K/uL (1.8-7.7); NEUTROPHILS % (AUTO) 66.6 % (42.2-75.2); PLATELET COUNT (AUTO) 301 K/uL (140-450); RED BLOOD CELL COUNT(AUTO) 3.75 MIL/uL (4.20-6.10); RED CELL DISTRIBUTION WIDTH 14.2 % (11.6-13.7); WHITE BLOOD COUNT (AUTO) 8.7 K/uL (4.8-10.8)
[2017-05-31] MEDS: BLOOD GLUCOSE MONITORING 1 DEV DEV FS SCH ×4 (06:33→21:02)
[2017-05-31 06:34] LABS: PROTHROMBIN TIME 9.6 secs (10.8-13.4)
[2017-05-31 06:37] LABS: ALBUMIN 2.1 g/dL (3.4-5.0); ANION GAP 8.9 (8-16); CARBON DIOXIDE 30.1 mmol/L (21-32); CREATININE 1.1 mg/dL (0.7-1.3); MAGNESIUM 1.9 mg/dL (1.8-2.4); PHOSPHORUS 3.8 mg/dL (2.5-4.9); TOTAL BILIRUBIN 0.3 mg/dL (0.0-1.0)
--- NOTE | 2017-05-31 07:15 | NUR ---
ENDORSED PT TO AM NURSE FOR CONTINUITY OF CARE. PT IS IN STABLE CONDITION.
--- NOTE | 2017-05-31 07:16 | NUR ---
RECEIVED REPORT FROM MIGRATORY WORKER NURSE JACKIE AT BEDSIDE. PT IS AWAKE AND ORIENTED. INTRODUCED SELF AND UPDATED BOARD. OR NURSE AND TECH CAME AND PICKED UP PT VIA BED FOR SURGERY. PT LEFT IN STABLE CONDITION.
[2017-05-31] MEDS ORDERED: BUPIVACAINE-MPF 0.5% 30 ML VIAL INJ ONE (07:20)
[2017-05-31] MEDS ORDERED: ONDANSETRON 4 MG/2 ML VIAL IVP ONE (07:30)
[2017-05-31] MEDS ORDERED: PIPERACILLIN/TAZOBACTAM 3.375 GM VIAL IV ONE (07:34)
[2017-05-31] MEDS ORDERED: MIDAZOLAM 2 MG/2 ML VIAL ONE (07:52)
[2017-05-31] MEDS ORDERED: fentaNYL 0.05 MG/ML VIAL ONE (07:52)
[2017-05-31] MEDS ORDERED: MORPHINE SULFATE 4 MG/ML SYR ONE (07:52)
[2017-05-31] MEDS ORDERED: MORPHINE SULFATE 2 MG/ML SYR IVP PRN (08:10)
[2017-05-31] MEDS ORDERED: MORPHINE SULFATE 4 MG/ML SYR IVP PRN ×2 (08:10)
[2017-05-31] MEDS ORDERED: METOCLOPRAMIDE 10 MG/2 ML INJ VIAL IVP PRN (08:10)
[2017-05-31] MEDS ORDERED: MIDAZOLAM 2 MG/2 ML VIAL IV ONE (08:10)
--- NOTE | 2017-05-31 08:50 | NUR ---
PT BACK TO UNIT FROM OR. ACCOMPANIED BY RN VIA BED. PT VITAL SIGNS BP 132/79 HR 78 O2 SAT 100% RA, RR 20. DENIES PAIN. PLACED CALL LIGHT WITHIN REACH, BED IN LOW POSITION, FALL RISK SIGN POSTED, YELLOW GOWN ON, AND ID BAND CHECKED. NO SIGNS OF DISTRESS WILL CONTINUE TO MONITOR.
[2017-05-31] MEDS ORDERED: ENOXAPARIN 30 MG/0.3 ML SYR SUBQ SCH (09:00)
--- NOTE | 2017-05-31 09:09 | NUR ---
PATIENT HAS BEEN SCREENED AND CATEGORIZED MODERATE NUTRITION RISK. PATIENT WILL BE SEEN WITHIN 3-5 DAYS OF ADMISSION. 06/02/17-06/04/[address]
[2017-05-31] MEDS: LISINOPRIL 5 MG TAB PO SCH (09:49)
[2017-05-31] MEDS: FUROSEMIDE 20 MG TAB PO SCH (09:49)
[2017-05-31] MEDS: METOPROLOL 25 MG TAB PO SCH ×2 (09:49→21:09)
[2017-05-31] MEDS: ENOXAPARIN 30 MG/0.3 ML SYR SUBQ SCH (09:50)
[2017-05-31] MEDS: PIPER/TAZO 3.375GM/D5W PREMIX 50 ML IV SCH ×2 (12:49→21:09)
--- NOTE | 2017-05-31 15:14 | NUR ---
CALLED DR. HURST AND INFORMED HIM DR. RUIZ ORDERED FOR DISCHARGE BY CONSULT. DR. HURST SAID PT CAN GO HOME TOMORROW AFTER HE SEES PT AND DOES FIRST DRESSING CHANGE.
--- NOTE | 2017-05-31 15:39 | NUR ---
CM NOTE INITIAL REVIEW FAXED TO [facility] / FAX# [phone], ATTN: SAUNDRA #[phone]
[2017-05-31] MEDS: INSULIN LISPRO SLIDING SCALE 100 UNITS/ML VIAL SUBQ PRN ×2 (17:08→21:05)
--- NOTE | 2017-05-31 18:00 | NUR ---
CHECKED ON PT IN ROOM. PT RESTING COMFORTABLY IN BED. MADE PT AWARE THAT DR. HURST WILL SEE HIM TOMORROW BEFORE D/C. PT VERBALIZED UNDERSTANDING. DENIES PAIN. WILL CONTINUE TO MONITOR.
--- NOTE | 2017-05-31 19:25 | NUR ---
ENDORSED PT TO ADULT HIGH SCHOOL INSTRUCTOR NURSE APRIL AT BEDSIDE FOR CONTINUITY OF CARE. PT IN STABLE CONDITION.
--- NOTE | 2017-05-31 19:30 | NUR ---
RECEIVED PT FROM LAVON BRAVO PT IS AAOX4 HL ON LEFT AC INFUSING WELL TKO , RT FOOT ON ELASTIC BAND S/P LEFT 5 TH AMPUTEE I AND D DENIES ANY PAIN AT THIS TIME.
[2017-05-31] MEDS ORDERED: ATORVASTATIN 80 MG TAB PO SCH (21:00)
[2017-05-31] MEDS: INSULIN DETEMIR 100 UNITS/ML 10 ML VIAL SUBQ SCH (21:06)
--- NOTE | 2017-05-31 21:30 | NUR ---
PT RESTING ON BED NOT DISTRESS NOTED BLOOD SUGAR TEST 223 COVERAGE WITH 4 UNITS SUBQ HUMALOG ON RT ARM AND HS SNACK GIVEN
[2017-06-01] VITALS: BP 116/62
--- NOTE | 2017-06-01 01:00 | NUR ---
PT SLEEPING WELL NOT FEVER, NOT DISTRESS NOTED
--- NOTE | 2017-06-01 04:00 | NUR ---
SPONGE BATH GIVEN LINEN CHANGED PT VOIDING WELL ON URINAL , DENIES ANY PAIN OR DISCOMFORT;
[2017-06-01] MEDS: PIPER/TAZO 3.375GM/D5W PREMIX 50 ML IV SCH ×2 (04:48→12:08)
[2017-06-01] MEDS: BLOOD GLUCOSE MONITORING 1 DEV DEV FS SCH ×2 (06:31→11:43)
--- NOTE | 2017-06-01 06:53 | NUR ---
BLOOD SUGAR TEST 128 PT REMAIN STABLE NOT DISTRESS NOTED
--- NOTE | 2017-06-01 07:25 | NUR ---
RECEIVED PT REPORT AT BEDSIDE FROM NIGHT NURSE. PT IS AAOX4 AND SHOWS NO S/S OF ACUTE DISTRESS ON RA. PT IS AROUSABLE TO NAME AND DENIES PAIN. NOTED DRESSING AT R FOOT WITH DRESSING CLEAN DRY AND INTACT. PT ON MS. IV NOTED ON THE RT AC SL. PT WAS EXPLAINED POC FOR TODAY AND VERBALIZE UNDERSTANDING. THE BED IS IN LOW POSITION WITH CALL LIGHT WITHIN REACH. ALL NEED'S MET AT THIS TIME. WILL CONTINUE TO MONITOR.
[2017-06-01 08:00] VITALS: BP 103/56
--- NOTE | 2017-06-01 08:50 | NUR ---
WOUND CARE EVAL. FOR RIGHT 5TH TOE NOT DONE, PT HAD AMPUTATION YESTERDAY. DR. HURST AND HIS STAFF WANTS TO FOLLOW UP WOUND CARE AND DISCHARGE ORDERS PER CHARGE NURSE.
[2017-06-01] MEDS: METOPROLOL 25 MG TAB PO SCH (09:00)
[2017-06-01] MEDS: LISINOPRIL 5 MG TAB PO SCH (09:02)
[2017-06-01] MEDS: FUROSEMIDE 20 MG TAB PO SCH (09:03)
[2017-06-01] MEDS: ENOXAPARIN 30 MG/0.3 ML SYR SUBQ SCH (09:05)
--- NOTE | 2017-06-01 09:10 | NUR ---
ADMINISTERED SCHEDULED MEDICATIONS. PT TOLERATED WELL. FLU VACCINE ADMINISTERED.
[2017-06-01] MEDS ORDERED: LEVO750T2 PO (11:29)
--- NOTE | 2017-06-01 11:30 | NUR ---
PT WAS ASKED IF HE WOULD LIKE PAIN MEDICATION PRIOR TO HAVING DRX CHANGE. PT STATED, "NO, JANNETH HUDSON." PT ENCOURAGED TO HAVE PAIN MEDICATION; HOWEVER PT REFUSED. DR MONZON FROM PODIATRY CAME TO SEE PT TO CHANGE WOUND DRX. WOUND CARE AND DR AT BEDSIDE.
--- NOTE | 2017-06-01 11:56 | NUR ---
CM NOTE CONCURRENT REVIEW FAXED TO [facility] / FAX# [phone], C: [phone]
--- NOTE | 2017-06-01 12:05 | NUR ---
WOUND EVALUATION NOTE: REASON FOR WOUND EVALUATION: RIGHT FOOT WOUND COMPLETE SKIN ASSESSMENT DONE ON THIS 51Y/O FEMALE PATIENT FROM HOME TO [facility], WITH INITIAL DIAGNOSIS OF RIGHT FOOT PAIN. PAST MEDICAL HISTORY INCLUDE DM, HTN, HYPERLIPIDEMIA. ALL ABOVE INFORMATION WAS OBTAINED FROM PT AND THE ADMISSION H&P. LABS ARE WBC 8.7, H/H 10.5/31.3, GLUCOSE 123, ALBUMIN 2.1, PT/INR 9.6/0.9 AND PTT 26.8. CURRENT MEDS INCLUDE INSULIN, LISINOPRIL, PIPERACILLIN AND FUROSEMIDE. PATIENT IS AWAKE, ORIENTED TO PERSON, PLACE AND TIME. SKIN WARM TO TOUCH WNL, TOENAILS ARE SLIGHTLY THICKENED, NO EDEMA, BLE WITH HAIR GROWTH AND NORMAL. ABLE TO TURN SELF WITHOUT ASSISTANCE. PLAN OF CARE DISCUSSED WITH PT. AND PRIMARY RN. INTEGUMENTARY: RIGHT 5TH METATARSAL ABSCESS WOUND S/P I&D AND REVISION OF RIGHT 5TH METATARSAL AMPUTATION, 10X 4X1.5CM WOUND BED IS RED AND CLEAN MINIMUM SANGUINEOUS DRAINAGE, NO ODOR RECOMMENDATIONS: -CLEANSE RIGHT 5TH METATARSAL WOUND WITH NS. PAT DRY, PACK WITH GAUZE AND DRESSING COVER WITH KERLIX AND MALGORZATA CHANGE QD AND PRN -OFFLOAD BILATERAL HEELS BY PLACING PILLOWS UNDER CALVES AT ALL TIMES WHEN IN BED, UNLESS OTHERWISE CONTRAINDICATED -KEEP SKIN CLEAN AND DRY AT ALL TIMES. -POST OP SHOSE FOR OFFLOADING -[facility] TO FOLLOW FOR WOUND CARE -CONTINUE TO FOLLOW WITH DR. HURST OUTPATIENT VISIT ON MONDAY RECOMMENDATIONS DISCUSSED WITH PRIMARY RN AND DR. MONZON NO NEED FOR FOLLOW UP. PLEASE CONTACT WOUND CARE NURSE FOR ANY CHANGES IN WOUND CONDITION.
[2017-06-01] MEDS: INSULIN LISPRO SLIDING SCALE 100 UNITS/ML VIAL SUBQ PRN (12:10)
[2017-06-01] MEDS ORDERED: HYDROcodone/APAP 5/325 MG 1 TAB TAB PO PRN (12:10)
--- NOTE | 2017-06-01 12:15 | NUR ---
ADMINISTERED SCHEDULED MEDICATIONS. PT C/O PAIN AT WOUND SITE. ORDERS FOR POONAM IN PLACE. WILL AWAIT FOR ORDERS TO BE VERIFIED.
[2017-06-01] MEDS ORDERED: [UNRECOGNIZED DRUG - CODE] RC (12:36)
--- NOTE | 2017-06-01 12:40 | NUR ---
ADMINISTERED NORCO 5/325 MG PO. WILL REASSESS PAIN IN ONE HR.
--- NOTE | 2017-06-01 13:27 | NUR ---
CM NOTE FAXED CLINICAL INFORMATION TO [facility] / FAX# [phone]
--- NOTE | 2017-06-01 13:40 | NUR ---
PT DENIES ANY PAIN. PT'S TRANSPORTATION IS HERE TO PICK HIM UP TO GO HOME.
--- NOTE | 2017-06-01 13:50 | NUR ---
PT HAS BEEN DISCHARGED. ALL DISCHARGE INSTRUCTIONS GIVEN. ALL PAPERWORK SIGNED. ALL QUESTIONS ANSWERED. PT IS AWARE OF APPOINTMENT WITH DR HURST 06/05/17 AT 1430. ALL BELONGINGS IN PATIENT'S POSSESSION. IV DISCONTINUED WITH CANNULA INTACT. WRISTBANDS REMOVED. OFFERED PT WHEEL CHAIR. PT HAS BELONGINGS AND CRUTCHES IN HIS POSSESSION. PT LEFT UNIT IN WHEELCHAIR IN STABLE CONDITION.
--- NOTE | 2017-06-01 14:16 | NUR ---
[facility] MADE AWARE THAT [facility] WILL BE SEEING THE PATIENT FOR WOUND CARE. WILL BE FAXING AUTH# TO [facility].
== END 2017-06-01 13:50 | disposition home health service (06) | DRG 305 ==
LOC: MED 07:55 → MTU 10:16
PROVIDERS: ADMIT Hospitalist; ATTEND Hospitalist
PROC: 0Y6M0ZF Detachment at Right Foot, Partial 5th Ray, Open Approach (ICD-10-PCS; principal; 2017-05-31 07:30)
PROC: 3E0234Z Introduction of Serum, Toxoid and Vaccine into Muscle, Percutaneous Approach (ICD-10-PCS; 2017-06-01)
DX: E11.69 Type 2 diabetes mellitus with other specified complication (principal); E11.22 Type 2 diabetes mellitus with diabetic chronic kidney disease; E11.51 Type 2 diabetes mellitus with diabetic peripheral angiopathy without gangrene; E11.42 Type 2 diabetes mellitus with diabetic polyneuropathy; E11.621 Type 2 diabetes mellitus with foot ulcer; K76.0 Fatty (change of) liver, not elsewhere classified; L03.115 Cellulitis of right lower limb; M21.6X2 Other acquired deformities of left foot; M21.6X1 Other acquired deformities of right foot; M86.8X7 Other osteomyelitis, ankle and foot; N18.2 Chronic kidney disease, stage 2 (mild); I12.9 Hypertensive chronic kidney disease with stage 1 through stage 4 chronic kidney disease, or unspecified chronic kidney disease; I25.10 Atherosclerotic heart disease of native coronary artery without angina pectoris; L02.611 Cutaneous abscess of right foot; Z95.1 Presence of aortocoronary bypass graft; Z79.899 Other long term (current) drug therapy; Z23 Encounter for immunization
CPT/HCPCS: 36415; 71010; 73630; 80053; 82948; 83605; 83735; 84100; 85025; 85610; 85730; 87040; 87070; 87075; 87081; 87186; 87205; 90658; 93005; 96360; 99285; J1650; J1815; J2250; J2270; J2405; J2543; J3010; J3490; J7030

== ENCOUNTER 2018-04-01 03:39 | Emergency (ER) | payer OTHER ==
[~2018-04-01] VITALS: Ht 165.1 cm; Wt 72.6 kg
[~2018-04-01 03:39] MED LIST changes: -CLIN300C2 PO; -LEVO500T2 PO; +LEVO750T2 PO; +NOV7030 SUBQ; -PANT40VI PO; -POTA25TE38 PO; +[UNRECOGNIZED DRUG - CODE] RC
[2018-04-01 03:42] VITALS: BP 181/103
--- NOTE | 2018-04-01 03:46 | NUR ---
PT AMBULATED TO ED BED 7. REPORT TO NORMAN BRAVO
--- NOTE | 2018-04-01 03:47 | NUR ---
Patient ambulated to bed 8 with family. RN evaluating patient at bedside.
--- NOTE | 2018-04-01 03:50 | NUR ---
PT STATES HE LOST VISION IN BOTH EYES TODAY, NOW IS HAVING BLURRY VISION. HYPERTENSIVE ON ARRIVAL. NO OTHER COMPLAINTS. 0/20 VISION IN BILAT EYES ON SNELLEN CHART EXAM.
[2018-04-01] MEDS ORDERED: TETRACAINE HCL/PF 0.5% OPTH 4 ML BTL OP ONE (03:55)
[2018-04-01] MEDS ORDERED: cloNIDine 0.1 MG TAB PO ONE (03:55)
--- NOTE | 2018-04-01 04:10 | NUR ---
PER DR. MONCADA PT AGREES AND DESIRES TO BE TAKEN BY PRIVATE VEHICLE TO [facility] FOR FURTHER WORK UP OF LOSS OF VISION THIS EVENING D/T OUR EQUIPMENT NOT WORKING, NEEDS TO ALSO BE SEEN BY OPHTHAMOLOGY.
--- NOTE | 2018-04-01 04:15 | NUR ---
Patient discharged with v/s stable. Written and verbal after care instructions given and explained. Patient verbalized understanding. Ambulatory with steady gait. All questions addressed prior to discharge. Advised to follow up with PMD.
[2018-04-01 04:20] VITALS: BP 159/96
== END 2018-04-01 04:15 | disposition home or self-care (01) ==
LOC: MED 03:39
DX: H53.8 Other visual disturbances (principal); H53.133 Sudden visual loss, bilateral; E11.9 Type 2 diabetes mellitus without complications; I10 Essential (primary) hypertension; Z95.1 Presence of aortocoronary bypass graft; Z79.899 Other long term (current) drug therapy
CPT/HCPCS: 81002; 99285